=== PATIENT | female | born 1960 | race Caucasian/White ===

== ENCOUNTER → 2020-08-29 03:34 | Outpatient (CLI) | payer OTHER, SELFPAY ==
[2020-08-30 18:18] LABS: SARS-CoV-2 RNA PCR Negative
== END ==
PROVIDERS: PCP Nurse Practitioner Family; Visit Provider Urology
DX: Z01.812 Encounter for preprocedural laboratory examination (principal); Z20.822 Contact with and (suspected) exposure to COVID-19
CPT/HCPCS: C9803; U0003; U0005

== ENCOUNTER 2020-09-01 00:39 | Day surgery (SDC) | payer OTHER, SELFPAY ==
--- NOTE | 2020-08-27 09:55 | PM.IMHP ---
H&P: HPI History of Present Illness Date/Time: 08/27/20 09:55 Chief Complaint: vaginal mesh exposure Narrative: Li Anthony is a 60 year old female small area of vaginal mesh exposure Review of Systems Review of Systems: All systems reviewed & are unremarkable except as noted in HPI and below PMFSH Past Medical History Medical History (Updated 08/27/20 @ 09:57 by King Palm MD) Acute adjustment disorder with anxiety CREST syndrome Depression Dyspareunia Dyspnea on exertion Excessive cerumen in ear canal Fatigue GERD (gastroesophageal reflux disease) Insomnia Memory impairment Normal colonoscopy Osteoarthritis Osteopenia Otalgia Raynauds disease Temporomandibular joint disorders Vaginal dryness Surgical History Surgical History (Updated 05/04/20 @ 11:56 by Ra Ding) H/O breast augmentation H/O prior ablation treatment Family History Family History (Updated 05/04/20 @ 11:59 by Ra Ding) Mother Diabetes mellitus Hypertension Malignant carcinoid tumor of lung Father Dementia Heart disease Kidney disease Social History Social History (Updated 05/04/20 @ 12:00 by Ra Ding) Smoking status: Never smoker Alcohol intake: current Meds Home Medications and Allergies Home Medications Medication Instructions Recorded Confirmed Type acamprosate 333 mg tablet,delayed 333 mg PO BID 05/04/20 History release albuterol sulfate 90 mcg/actuation 2 inh INHALATION Q4H g 05/04/20 History aerosol inhaler alendronate 35 mg tablet 35 mg PO WEEKLY 05/04/20 History amlodipine 5 mg tablet 5 mg PO DAILY 05/04/20 History citalopram 40 mg tablet 20 mg PO DAILY 05/04/20 History famotidine 20 mg tablet 20 mg PO DAILY 05/04/20 History lidocaine (PF) 10 mg/mL (1 %) 1 ml INFILTRATION ONCE 05/04/20 History injection solution omeprazole 40 mg capsule,delayed 40 mg PO DAILY 05/04/20 History release omeprazole 40 mg capsule,delayed 40 mg PO DAILY 05/04/20 History release ospemifene 60 mg tablet 60 mg PO DAILY 05/04/20 History triamcinolone acetonide 10 mg/mL 10 mg SUBCUT WEEKLY 05/04/20 History suspension for injection Allergies Allergy/AdvReac Type Severity Reaction Status Date / Time kiwi Allergy Unknown THROAT Verified 03/10/19 09:41 SWELLING Exam Const: General: healthy appearing; No cooperative HENMT: Head: normal to inspection Eyes: General: appearance normal, both eyes and all related structures Resp: Effort & Inspection: normal respiratory effort and able to speak in complete sentences : Other: small area of mesh exposure Skin: General skin exam: normal color Assessment and Plan Assessment and plan (1) Exposure of vaginal mesh through vaginal wall: Code(s): T83.721A - Exposure of implanted vaginal mesh into vagina, initial encounter Status: Acute Assessment and Plan: excision of exposed mesh
[2020-08-28 15:15] VITALS: BMI 22.0
[2020-09-01] VITALS (8 sets, daily range): BP systolic 118–149; BP diastolic 65–78; PULSE 55–65; RESP 12–18; TEMP 36.1–36.4; O2SAT 98–100
--- NOTE | 2020-09-01 07:18 | WPDHPUPDATE1 ---
History and Physical Update Update Date/Time: 09/01/20 07:18 History and Physical has been reviewed, including an updated exam of the patient. There are NO changes in the patient's condition. Risks, benefits, and alternatives have been discussed and questions answered. Patient agrees to proceed with procedure.
--- NOTE | 2020-09-01 08:40 | ECG_ITS ---
Measurements Intervals [place] Rate: 59 P: 50 IA: 153 QRS: 30 QRSD: 106 T: 36 QT: 451 QTc: 450 Interpretive Statements SINUS BRADYCARDIA INCOMPLETE RIGHT BUNDLE BRANCH BLOCK BORDERLINE ECG Electronically Signed On 09-01-2020 9:24:46 SPECIALIST FIELD ENGINEER by Alek Giraldo D.O.
--- NOTE | 2020-09-01 09:31 | WPDANESEPPF ---
Anes - Initial Pre Proc Eval Procedure: Operation Date: 09/01/20 11:00 Proposed Procedures p Excision Exposed Vaginal Mesh - King Palm MD Date/Time: 09/01/20 09:31 Surgeon: King Palm MD Pre Op Diagnosis: Exposure Of Implanted Vaginal Mesh Patient Data Age: 60 Gender: F Height: 1.65 m Weight: 61 kg Last Vital Signs Temp 36.1 C L 09/01/20 08:58 Pulse 65 09/01/20 08:58 Resp 16 09/01/20 08:58 BP 136/74 09/01/20 08:58 Pulse Ox 100 09/01/20 08:58 Allergies Allergy/AdvReac Type Severity Reaction Status Date / Time kiwi Allergy Severe THROAT Verified 09/01/20 09:17 SWELLING Home Medications Medication Instructions Recorded Confirmed Type amlodipine 5 mg tablet 5 mg PO DAILY 05/04/20 09/01/20 History citalopram 40 mg tablet 20 mg PO DAILY 05/04/20 09/01/20 History omeprazole 40 mg capsule,delayed 40 mg PO DAILY 05/04/20 09/01/20 History release ascorbic acid (vitamin C) [Vitamin 500 mg PO DAILY 09/01/20 09/01/20 History C] cholecalciferol (vitamin D3) 25 mcg PO DAILY 09/01/20 09/01/20 History [Vitamin D3] Patient hx anesthesia problems: none Family hx anesthesia problems: none PMFSH Past Medical History Medical History (Updated 09/01/20 @ 09:31 by Enrique Ch DO) Acute adjustment disorder with anxiety CREST syndrome Depression Dyspareunia Dyspnea on exertion Excessive cerumen in ear canal Fatigue GERD (gastroesophageal reflux disease) Insomnia Memory impairment Normal colonoscopy Osteoarthritis Osteopenia Otalgia Raynauds disease Temporomandibular joint disorders Vaginal dryness Surgical History Surgical History (Updated 05/04/20 @ 11:56 by Ra Ding) H/O breast augmentation H/O prior ablation treatment Family History Family History (Updated 05/04/20 @ 11:59 by Ra Ding) Mother Diabetes mellitus Hypertension Malignant carcinoid tumor of lung Father Dementia Heart disease Kidney disease Social History Social History (Updated 05/04/20 @ 12:00 by Ra Ding) Smoking status: Never smoker Alcohol intake: current Substance use: never Living arrangements: with family Spiritual care concerns: No Anes - Eval Final PreProcedure Day of Procedure 09/01/20 09:31 Patient weight: normal Heart: regular rate and rhythm Lungs: clear to auscultation and normal air movement Airway: Mallampati scale class II Neurological: alert and oriented Last oral intake: >/= 8 hours ASA classification: III Emergent: no Anesthetic plan: proceed Anesthesia type and monitoring: general LMA and standard monitoring Informed Consent: The patient's anesthetic plan and its attendant risks and benefits were discussed with the patient/family/POA. Questions were solicited and answers provided to the satisfaction of the patient/family/POA.
[2020-09-01] MEDS: LACTATED RINGERS 1,000 ML 30 ML IV CONT (09:50)
[2020-09-01] MEDS: ceFAZolin 2 GM/D5W 50 ML 2 GM/50 ML BAG IVPB (10:48)
[2020-09-01] MEDS: KETOROLAC 15 MG/ML VIAL (*BKC) IV PUSH (11:15)
--- NOTE | 2020-09-01 11:42 | PM.PROC ---
Procedure Note - Detailed Date of procedure: 09/01/20 Pre-op diagnosis: Exposure Of Implanted Vaginal Mesh Post-op diagnosis: same Procedure performed: Excision of exposed vaginal mesh Cystoscopy Description of procedure: She understands the risks of bleeding, infection, recurrence of mesh exposure, dyspareunia, recurrent stress incontinence. She agrees to proceed She has correctly identified. Informed consent obtained. She from the operating room. She was given general anesthesia. She was prepped and draped in dorsal lithotomy fashion.. She was given appropriate perioperative antibiotics. I placed a [place] retractor. I placed a [place] catheter. There were some small string like mesh noted in the right sulcus and going towards the right mid urethra. I made an vaginal incision over this area. I grasped the sling material. I was able to trim back in remove small pieces of mesh fibers. I palpated the area. I did not feel any other mesh exposure. I closed the vaginal incision with a running 2 0 Vicryl suture. Cystoscopy revealed normal-appearing bladder and urethra. There is no foreign bodies or surgical artifact. There is no tumors or other abnormalities. She was awakened and transferred to the PACU in stable condition. Anesthesia: GLMA Surgeon: King Palm MD Estimated blood loss (mL): 5 Drains: No Packing: No Pathology: none sent Complications: No immediate complications Condition: stable Disposition: PACU
== END 2020-09-01 13:20 | disposition home or self-care (01) ==
PROVIDERS: PCP Nurse Practitioner Family; Visit Provider Urology
PROC: (CPT 57287; principal; 2020-09-01 11:00)
DX: T83.721A Exposure of implanted vaginal mesh into vagina, initial encounter (principal); N84.2 Polyp of vagina; Y83.8 Other surgical procedures as the cause of abnormal reaction of the patient, or of later complication, without mention of misadventure at the time of the procedure; K21.9 Gastro-esophageal reflux disease without esophagitis; F32.9 Major depressive disorder, single episode, unspecified; F43.22 Adjustment disorder with anxiety
CPT/HCPCS: 57295; 88300; 88305; 93005; A9270; C9803; J0690; J1100; J1885; J2250; J2405; J2704; J3010; J7030; J7120; U0003; U0005

== ENCOUNTER 2021-04-13 07:39 | Outpatient (CLI) | payer OTHER, SELFPAY ==
--- NOTE | ~2021-04-13 | MM_ITS ---
EXAMINATION: MM scrn danie implant BI w gisele HISTORY: Screening mammogram TECHNIQUE: Craniocaudal and mediolateral oblique 3-D tomosynthesis images with implant displacement a nd synthetic 2-D images were generated. Craniocaudal and mediolateral oblique views of the breasts wi thout implant displacement were obtained using full field digital mammography. CAD analysis was submi tted and interpreted. COMPARISON: No prior mammogram is available for comparison at this institution. BREAST PARENCHYMAL COMPOSITION: There are scattered areas of fibroglandular density. FINDINGS: Status post bilateral augmentation mammoplasty. There is no evidence of suspicious mass, ca lcification, or architectural distortion to suggest malignancy in either breast. There has been no crouch spicious interval change. IMPRESSION: 1. No mammographic evidence of malignancy. 2. Recommend routine screening mammography in one year. BI-RADS Category 1: Negative Reviewed, dictated and finalized at location A.
== END 2021-04-13 07:40 | disposition home or self-care (01) ==
LOC: ANHIMG 07:41
PROVIDERS: PCP Nurse Practitioner Family; Visit Provider Nurse Practitioner Family
DX: Z12.31 Encounter for screening mammogram for malignant neoplasm of breast (principal)
CPT/HCPCS: 77063; 77067

== ENCOUNTER 2022-04-02 08:36 | Outpatient (CLI) | payer OTHER, SELFPAY ==
--- NOTE | ~2022-04-02 | MM_ITS ---
EXAMINATION: MM scrn danie implant BI w gisele HISTORY: Screening mammogram TECHNIQUE: Craniocaudal and mediolateral oblique 3-D tomosynthesis images with implant displacement a nd synthetic 2-D images were generated. Craniocaudal and mediolateral oblique views of the breasts wi thout implant displacement were obtained using full field digital mammography. CAD analysis was submi tted and interpreted. COMPARISON: 04/09/2021 bilateral implant screening mammogram BREAST PARENCHYMAL COMPOSITION: There are scattered areas of fibroglandular density. FINDINGS: Status post bilateral augmentation mammoplasty. There is no evidence of suspicious mass, ca lcification, or architectural distortion to suggest malignancy in either breast. There has been no crouch spicious interval change. IMPRESSION: 1. No mammographic evidence of malignancy. 2. Recommend routine screening mammography in one year. BI-RADS Category 1: Negative Reviewed, dictated and finalized at location A.
== END 2022-04-02 08:37 | disposition home or self-care (01) ==
PROVIDERS: PCP Nurse Practitioner Family; Visit Provider Obstetrics & Gynecology
DX: Z12.31 Encounter for screening mammogram for malignant neoplasm of breast (principal)
CPT/HCPCS: 77063; 77067

== ENCOUNTER → 2022-05-20 10:44 | Outpatient (CLI) | payer OTHER, SELFPAY ==
--- NOTE | ~2022-05-20 | XR_ITS ---
EXAMINATION: XR chest 2V DATE: 05/20/2022 10:59 INDICATION: 6 months of cough TECHNIQUE: PA and lateral views of the chest were obtained. COMPARISON: None FINDINGS: The lungs are clear with no focal airspace opacities, pulmonary edema, pleural effusion or pneumothor ax. The cardiomediastinal silhouette is normal. Bilateral breast implants with some capsular calcific ation on the left. Visualized bones and soft tissues are unremarkable. Mild S-shaped thoracolumbar sc oliosis. With moderate spondylosis. Midthoracic compression fracture. IMPRESSION: 1. No acute cardiopulmonary disease. Reviewed, dictated and finalized at location B.
== END ==
PROVIDERS: PCP Nurse Practitioner Family; Visit Provider Nurse Practitioner Family
DX: R05.9 Cough, unspecified (principal)
CPT/HCPCS: 71046

== ENCOUNTER → 2022-12-03 12:55 | Outpatient (CLI) | payer OTHER, SELFPAY ==
--- NOTE | ~2022-12-03 | XR_ITS ---
XR hip RT 2V w AP pelvis 12/03/2022 13:23 Indication: Right hip and SI joint pain Procedure: AP pelvis and 2 views right hip Comparison: No prior studies for comparison. Findings: Pelvic rings are intact. Sacral foramen are symmetric. No fracture, subluxation or dislocat ion. There is lower lumbar spondylosis. No significant soft tissue abnormality. Impression: 1: No acute bone or joint abnormality. Reviewed, dictated and finalized at location L. Impression: 1: No acute bone or joint abnormality.
== END ==
PROVIDERS: PCP Chiropractor; Visit Provider Chiropractor
DX: M25.551 Pain in right hip (principal)
CPT/HCPCS: 73502

== ENCOUNTER 2023-08-04 07:56 | Outpatient (CLI) | payer MEDICARE, SELFPAY ==
--- NOTE | ~2023-08-04 | MM_ITS ---
EXAMINATION: MM scrn danie implant BI w gisele HISTORY: Screening mammogram TECHNIQUE: Craniocaudal and mediolateral oblique 3-D tomosynthesis images with implant displacement a nd synthetic 2-D images were generated. Craniocaudal and mediolateral oblique views of the breasts wi thout implant displacement were obtained using full field digital mammography. CAD analysis was submi tted and interpreted. COMPARISON: Comparison to multiple prior studies sequentially, with oldest reviewed study dated 04/13. BREAST PARENCHYMAL COMPOSITION: Breast composed of scattered areas of fibroglandular density FINDINGS: The right breast is stable without evidence for malignancy. There are bilateral subglandula r silicone implants. There are nodular asymmetries in the upper central aspect of the left breast. IMPRESSION: 1. New nodular asymmetries upper central left breast. 2. Additional spot compression and mediolateral views with possible follow-up breast ultrasound recom mended. BI-RADS Category 0: Incomplete: Needs additional imaging evaluation. Reviewed, dictated and finalized at location A. CLOPEDIA RESEARCH WORKER IMPRESSION: 1. New nodular asymmetries upper central left breast. 2. Additional spot compression and mediolateral views with possible follow-up b reast ultrasound recommended. BI-RADS Category 0: Incomplete: Needs additional imaging evaluation.
== END 2023-08-04 07:57 | disposition home or self-care (01) ==
LOC: ANHIMG 08:00
PROVIDERS: PCP Family Medicine; Visit Provider Obstetrics & Gynecology
DX: Z12.31 Encounter for screening mammogram for malignant neoplasm of breast (principal); R92.8 Other abnormal and inconclusive findings on diagnostic imaging of breast
CPT/HCPCS: 77063; 77067

== ENCOUNTER 2023-09-01 10:34 | Outpatient (CLI) | payer MEDICARE, SELFPAY ==
--- NOTE | ~2023-09-01 | MMUS_ITS ---
EXAMINATION: MM diag danie implant LT w gisele, US breast LT limited HISTORY: Left breast asymmetry on screening mammogram TECHNIQUE: Craniocaudal, mediolateral, and mediolateral oblique 3-D tomosynthesis images with implant displacement of the left breast were performed and synthetic 2-D images were generated. Mediolatera l views of the left breast without implant displacement were obtained using full field digital mammog rosy. CAD analysis was submitted and interpreted. COMPARISON: 08/04/2023, 04/02/2022, 04/13/2021 FINDINGS: MAMMOGRAPHIC FINDINGS: There is a return to baseline fibroglandular appearance with spot compression of the left breast in the area questioned on screening mammogram. ULTRASOUND FINDINGS: No suspicious cystic or solid sonographically detected mass is identified. IMPRESSION: 1. No mammographic or sonographic evidence of malignancy. 2. Recommend routine screening mammography in one year. BI-RADS Category 1: Negative Reviewed, dictated and finalized at location A. MONIUM NITRATE CRYSTALLIZER IMPRESSION: 1. No mammographic or sonographic evidence of malignancy. 2. Recommend routine screening mammography in one year. BI-RADS Category 1: Negative
== END 2023-09-01 10:35 | disposition home or self-care (01) ==
LOC: ANHIMG 10:37
PROVIDERS: PCP Family Medicine; Visit Provider Obstetrics & Gynecology
DX: R92.8 Other abnormal and inconclusive findings on diagnostic imaging of breast (principal)
CPT/HCPCS: 76642; 77061; 77065; G0279

== ENCOUNTER 2023-10-01 17:35 | Emergency (ER) | payer MEDICARE, SELFPAY ==
--- NOTE | ~2023-10-01 | XR_ITS ---
XR wrist RT min 3V 10/01/2023 18:34 Indication: Right wrist pain after fall Procedure: 4 views right wrist Comparison: No prior studies for comparison. Findings: There is a possible scaphoid waist fracture. There is polyarticular osteoarthritis. Normal mineralization. Old ulnar styloid avulsion fracture. Impression: 1: Possible scaphoid waist fracture. 2: Polyarticular osteoarthritis. Reviewed, dictated and finalized at location A. Impression: 1: Possible scaphoid waist fracture. 2: Polyarticular osteoarthritis.
[2023-10-01 17:51] VITALS: BP 138/75; PULSE 69; RESP 18; TEMP 37.2; O2SAT 100
--- NOTE | 2023-10-01 18:31 | ED.GENADULT ---
HPI - General Adult General Chief complaint: Fall Stated complaint: fall Time Seen by Provider: 10/01/23 18:03 Source: patient Mode of arrival: ambulatory Limitations: no limitations History of Present Illness HPI narrative: This is a 63-year-old female who presents to the ED with chief complaint of a fall while playing kickball today. Patient states that she was bumped and stumbled to the ground. Reports that she braced herself with the right wrist and did slowly hit her face on the ground. Denies LOC or any further sites of pain or injury. Denies numbness, weakness. Related Data Home Medications Medication Instructions Recorded Confirmed omeprazole 40 mg capsule,delayed 40 mg PO DAILY 05/04/20 10/01/23 release cholecalciferol (vitamin D3) 25 25 mcg PO DAILY 09/01/20 10/01/23 mcg (1,000 unit) tablet (Vitamin D3) alendronate 35 mg tablet 35 mg PO WEEKLY 08/26/23 10/01/23 multivitamin (Daily Multi-Vitamin 1 tablet PO DAILY 08/26/23 10/01/23 tablet) vit cap PO DAILY 08/26/23 10/01/23 C,E,zinc,Gs-gvtnx-7-lutein-zeaxanthin 250 mg-2.5 mg-0.5 mg capsule Allergies Allergy/AdvReac Type Severity Reaction Status Date / Time kiwi Allergy Severe THROAT Verified 10/01/23 18:10 SWELLING Review of Systems Review of Systems: All systems as dictated in HPI PMFSH Past Medical History Medical History (Updated 10/02/23 @ 00:00 by Background Daemon) Acute adjustment disorder with anxiety Change in bowel habits CREST syndrome Depression Dyspareunia Dyspnea on exertion Excessive cerumen in ear canal Fatigue GERD (gastroesophageal reflux disease) Incontinence of feces Insomnia 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 Memory impairment Normal colonoscopy Osteoarthritis Osteopenia Otalgia Raynauds disease Temporomandibular joint disorders Vaginal dryness Surgical History Surgical History H/O breast augmentation H/O prior ablation treatment Family History Family History Mother Diabetes mellitus Hypertension Malignant carcinoid tumor of lung Father Dementia Heart disease Kidney disease Alcoholism Lung cancer Depression Anxiety Grandparent Alcoholism Diabetes mellitus Social History Social History Smoking status: Never smoker Alcohol intake: never Substance use: never Do You Feel Safe in your Home?: Yes Lack of Transportation: No Lack of Food: Never True Current Housing: I Have Housing Concerned About Future Housing: No Difficulty Paying Gas/Electric Bills: No Difficulty Paying for Meds: No Currently Unemployed: No Education: High School Diploma/GED Living arrangements: with family Spiritual care concerns: No Exam Narrative: GENERAL: Well-appearing, well-nourished, and in no acute distress. HEAD: Normocephalic, atraumatic. EYES: PERRLA and EOMI. ENT: Nares clear, no rhinorrhea or epistaxis. Mucous membranes moist. Oropharynx without tonsillar hypertrophy exudate or other lesions. NECK: Supple. No adenopathy or masses. CHEST: No respiratory distress. Clear to auscultation. No wheezes rales or rhonchi HEART: Regular rate and rhythm. No murmur heard. Normal peripheral pulses. ABDOMEN: Soft, nontender, nondistended, normal active bowel sounds. MSK: Normal range of motion. No edema. Full range of motion of extremities. No anatomical snuffbox tenderness to the right wrist. No swelling or bruising to the right wrist. Mild tenderness dorsally to the right hand and wrist. Neurovascular intact distally. SKIN: Warm, dry, no rash. Superficial abrasion noted to the right eyebrow. No bleeding NEURO: Alert and oriented x3. No focal deficits. PSYCH: Normal mood and affect. Course Vital Signs Vital signs: Vital Signs Temperature 99 F 10/01/23 17:51 Pulse Rate 69
[2023-10-01 19:25] VITALS: BP 132/74; PULSE 67; RESP 20; O2SAT 100
== END 2023-10-01 19:27 | disposition home or self-care (01) ==
PROVIDERS: Emergency Provider Physician Assistant; PCP Family Medicine
DX: S69.91XA Unspecified injury of right wrist, hand and finger(s), initial encounter (principal); F41.9 Anxiety disorder, unspecified; F32.A Depression, unspecified; K21.9 Gastro-esophageal reflux disease without esophagitis; M19.90 Unspecified osteoarthritis, unspecified site; W03.XXXA Other fall on same level due to collision with another person, initial encounter
CPT/HCPCS: 29125; 73110; 99283

== ENCOUNTER 2024-08-12 07:55 | Outpatient (CLI) | payer MEDICARE, SELFPAY ==
[2024-08-12 18:26] LABS: Hematocrit 37.7 % (37.0-47.0); Hemoglobin 12.1 g/dL (12.0-15.0); Mean Corpuscular HGB Conc 32.1 g/dl (32-36); Mean Corpuscular Hemoglobin 29.6 pg (26-34); Mean Corpuscular Volume 92.2 fl (80-100); Mean Platelet Volume 11.5 fl (7.4-10.4); Platelet Count Result 244 k/mm3 (150-375); Red Blood Count 4.09 M/mm3 (4.2-5.4); Red Cell Distribution Width 13.1 % (11.5-14.5); White Blood Count 4.4 K/mm3 (4.5-10.0)
[2024-08-12 19:11] LABS: Alanine Aminotransferase 17 U/L (6-35); Albumin Level 3.6 g/dL (3.5-5.1); Alkaline Phosphatase 55 U/L (38-126); Anion Gap 5 mmol/L (4-12); Aspartate Amino Transferase 31 U/L (14-36); Bilirubin,Total 0.4 mg/dL (0.2-1.3); Blood Urea Nitrogen 11 mg/dL (7-17); Calcium 8.5 mg/dL (8.4-10.2); Carbon Dioxide 28 mmol/L (22-30); Chloride 105 mmol/L (98-107); Cholesterol 150 mg/dL (0-200); Estimated Glomerular Filt Rate > 60; Glucose 91 mg/dL (65-110); HDL Direct 57 mg/dL; Potassium 4.6 mmol/L (3.4-5.0); Sodium 138 mmol/L (137-145); Triglycerides 38 mg/dL (<150)
[2024-08-12 19:22] LABS: LDL Cholesterol Direct 71 mg/dL
[2024-08-12 19:41] LABS: Thyroid Stimulating Hormone 0.658 uIU/mL (0.465-4.680)
[2024-08-12 19:50] LABS: Hemoglobin A1C 5.6 % (<5.7)
== END 2024-08-12 07:56 | disposition home or self-care (01) ==
LOC: ANHGOSHLAB 07:56
PROVIDERS: PCP Family Medicine; Visit Provider Family Medicine
DX: E55.9 Vitamin D deficiency, unspecified (principal); F41.9 Anxiety disorder, unspecified; R73.03 Prediabetes; E78.5 Hyperlipidemia, unspecified; Z79.899 Other long term (current) drug therapy
CPT/HCPCS: 36415; 80053; 80061; 82652; 83036; 84443; 85027

== ENCOUNTER 2024-08-25 10:39 | Outpatient (CLI) | payer MEDICARE, SELFPAY ==
--- NOTE | ~2024-08-25 | MR_ITS ---
MR breast BI wo/w con 08/25/2024 14:40 STATION BAGGAGE AGENT INDICATION: Breast implant leak. TECHNIQUE: MRI of the breasts perform using standard protocol pre-and post IV contrast with the follo wing sequences: Axial T2 STIR, axial T1, axial vibrant T1 with fat suppression precontrast and multip hasic postcontrast. COMPARISON: Mammogram dated 08/05/2024 FINDINGS: There is intracapsular rupture of left breast implant. No definite extracapsular rupture is identified. Rupture is characterized by subcapsular line sign and linguini sign. No evidence for rig ht breast implant rupture. Right breast: No lymphadenopathy. No mass is identified on precontrast images. There are no abnormali ties on the precontrast sequences. There is mild-moderate background parenchymal enhancement. No enh ancing lesions following contrast administration. No areas of enhancement meeting threshold criteria on CAD analysis. No evidence of signal abnormalities in the axillary or internal mammary node distr ibutions. LEFT BREAST: No signal abnormalities on precontrast sequences. There is minimal background parenchym al enhancement. No enhancing lesions following contrast administration. No areas of enhancement me eting threshold criteria on CAD analysis. No evidence of signal abnormalities in the axillary or in ternal mammary node distributions. IMPRESSION: 1: Right breast: Negative. No evidence of malignancy. BI-RADS category 1. Recommend annual mammo graphy follow-up. 2: Left breast: Intracapsular rupture of left breast implant. No evidence of malignancy. BI-RADS ca tegory 2. Recommend annual mammography follow-up. Follow-up MRI may be useful for supplementing mammographic evaluation as clinically indicated. Reviewed, dictated and finalized at location B. ION BAGGAGE AGENT IMPRESSION: 1: Right breast: Negative. No evidence of malignancy. BI-RADS category 1. Recommend annual mammography follow-up. 2: Left breast: Intracapsular rupture of left breast implant. No evidence of m alignancy. BI-RADS category 2. Recommend annual mammography follow-up. Follow-up MRI may be useful for supplementing mammographic evaluation as clinic ally indicated.
--- OUTSIDE RECORDS SUMMARY | 2024-08-25 12:13 | XMS_ITS | CONTINUITY OF CARE DOCUMENT ---
Author Name mendoza donaldson Address Unknown Organization [facility] Address [address] [place] [address] Phone [phone] Care Team Providers Care Emergency Service Worker Name Role Phone Ursula Alonzo MD Unavailable Frances RESENDIZP-BCKatina Unavailable Frances PAREKH-Katina ONTIVEROS Unavailable INSURANCE PROVIDERS Payer name Policy type / Coverage type [place] red green party ID [facility] Other [id number]
--- OUTSIDE RECORDS SUMMARY | 2024-08-25 12:13 | XMS_ITS | Continuity of Care Document ---
Author Organization [facility] Address [address] [place] [address] Phone Care Team Providers Care Funeral Director'S Assistant Name Role Phone Sun OD, Raciel Unavailable Unavailable Advance Directives Directive Yes / No Effective Date File Name No Information Encounters Encounter Description Practice Location Reason(s) For Visit Diagnoses Date Provider Providers Copied on Encounter [facility], [address], [place], [place], [id number], [place] tel:[phone] [facility] No Information May-2 6-200 5 Sun OD Raciel. [address] , [address], [place], [address], [place]. tel:[phone] Family History Family Member Type Diagnosis Age At Onset No Information Payers Payer name Insurance type Covered constitution party ID Authoriza tirolf(s) [facility] Commercial CI [id number] Social History Type Description Quantity Date Captured Comments Sex Female Smoking Status No Information Chief Complaint And Reason For Visit No Information Reason For Referral Reason For Referral No Information History Of Present Illness Encounter Date Complaint History Of Prese nt Illness No Information Functional Status Date Functional Assessmen t No Information Instructions Date Instruction Additional Infor mation No Information Assessments Type Assessment Date No Information Patient Care Teams Name Effective Dates (start - stop) Status Members No Information
== END 2024-08-25 10:40 | disposition home or self-care (01) ==
PROVIDERS: PCP Family Medicine; Visit Provider Family Medicine
DX: R92.8 Other abnormal and inconclusive findings on diagnostic imaging of breast (principal); T85.43XA Leakage of breast prosthesis and implant, initial encounter
CPT/HCPCS: 77049; A9577; C8908

== ENCOUNTER 2024-10-06 08:43 | Day surgery (SDC) | payer OTHER, SELFPAY ==
[2024-09-15 09:34] VITALS: BMI 20.9
--- NOTE | 2024-10-05 19:58 | P.PNAN_ITS ---
Anes - Initial Pre Proc Eval Procedure: Operation Date: 10/06/24 10:30 Proposed Procedures p Bilateral Breast Implant Exchange - Rajat Knutson MD Date/Time: 10/05/24 19:58 Surgeon: Rajat Knutson MD Pre Op Diagnosis: Bilateral Breast Implant Rupture Patient Data Age: 64 Gender: F Height: 1.65 m Weight: 57 kg Allergies Allergy/AdvReac Type Severity Reaction Status Date / Time kiwi Allergy Severe THROAT Verified 10/06/24 09:13 SWELLING Home Medications ?Medication ?Instructions ?Recorded ?Confirmed ?Type alendronate 35 mg tablet 35 mg PO WEEKLY 08/26/23 10/06/24 History progesterone micronized 200 mg 200 mg PO QPM 07/27/24 10/06/24 History capsule vit A 225 mcg-D3 2.5 mcg-E 16.75 1 cap PO DAILY 07/27/24 10/06/24 History ni-qvrlaw-oqzp-selenom-herb capsule (MedCaps T3) citalopram 40 mg tablet See Rx Instructions .Route 08/26/24 10/06/24 Rx .COMPLEX #90 tabs omeprazole 40 mg capsule,delayed 40 mg PO DAILY #90 caps 09/06/24 10/06/24 Rx release simvastatin 10 mg tablet See Rx Instructions .Route 10/06/24 Rx .COMPLEX #90 tabs Patient hx anesthesia problems: none Family hx anesthesia problems: none Results Review: All pre-operative results and documents have been reviewed as part of the pre- operative evaluation. PMFSH Past Medical History Medical History Change in bowel habits Incontinence of feces group home use of drug Normal colonoscopy Dyspnea on exertion Memory impairment Fatigue Osteopenia Osteoarthritis CREST syndrome Vaginal dryness Dyspareunia GERD (gastroesophageal reflux disease) Temporomandibular joint disorders Raynauds disease Otalgia Excessive cerumen in ear canal Insomnia Depression Acute adjustment disorder with anxiety Surgical History Surgical History H/O breast augmentation H/O prior ablation treatment Family History Family History Mother Diabetes mellitus Hypertension Malignant carcinoid tumor of lung Father Dementia Heart disease Kidney disease Alcoholism Lung cancer Depression Anxiety Grandparent Alcoholism Diabetes mellitus Social History Social History Smoking status: Never smoker Second hand tobacco smoke exposure: Yes Alcohol intake: former Alcohol use details: quit 2021 Substance use: never Substance use type: does not use Do You Feel Safe in your Home?: Yes Lack of Transportation: No Lack of Food: Never True Current Housing: I Have Housing Concerned About Future Housing: No Difficulty Paying Gas/Electric Bills: No Difficulty Paying for Meds: No Currently Unemployed: No Education: High School Diploma/GED Living arrangements: with family Spiritual care concerns: No Anes - Eval Final PreProcedure Day of Procedure 10/05/24 19:58 Patient weight: normal Heart: regular rate and rhythm Lungs: clear to auscultation Airway: Mallampati scale class II Neurological: alert and oriented Last oral intake: >/= 8 hours ASA classification: III Emergent: no Anesthetic plan: proceed Anesthesia type and monitoring: general LMA and standard monitoring Results Review: All pre-operative results and documents have been reviewed as part of the pre- operative evaluation. Informed Consent: The patient's anesthetic plan and its attendant risks and benefits were discussed with the patient/family/POA. Questions were solicited and answers provided to the satisfaction of the patient/family/POA.
[2024-10-06] VITALS (9 sets, daily range): BP systolic 107–148; BP diastolic 68–92; PULSE 66–80; RESP 12–16; TEMP 36.2–36.9; O2SAT 92–100
--- OUTSIDE RECORDS SUMMARY | 2024-10-06 09:18 | XMS_ITS | Data Portability ---
Author Organization [place] - [facility] [employer], Main Office Address [address] [place] [address] Care Team Providers Care Feed Inspection Supervisor Name Role Phone KAMLESH RODRIGUEZ Primary Care Provider [phone] KAMLESH RODRIGUEZ Referring Provider [phone] Assessment No assessment recorded. Plan of Treatment Reminders Order Date Submit Date Provider Last Modified By Organization Details Last Modified Time Details Appointments None recorded. Lab None recorded. Referral None recorded. Procedures None recorded. Surgeries None recorded. Imaging None recorded. Medication Orders doxycycline hyclate 100 mg capsule 2022 023 [facility] #[id number], [address], [place], [id number], 3 17:03:53 Medrol (Cristobal) 4 mg tablets in a dose pack 2022 023 [facility] #93187, [address], [place], [id number], 3 17:03:53 albuterol sulfate HFA 90 mcg/actuati on aerosol inhaler 2022 023 [facility] #99706, [address], [place], [id number], 3 17:03:53 Symbicort 160 mcg-4.5 mcg/actuati on HFA aerosol inhaler 2022 023 [facility] #55653, [address] [place], [place], [id number], 3 17:03:53 Patient TargetsNo targets recorded. Patient Instructions Encounter Date Encounter Id Patient Instructions Last Modified By Organization Details Last Modified Time 11/05/2022 [id number] [email or web address]. [email or web address] Not available 11/05 17:13:14 Reason for Referral None Reported. Results Created Date Observation Date Name Description Value Unit Range Abnormal Flag Note LastModifiedBy Organization Detail LastModifiedTime 04/02/20 22 04/02/2022 MAMMO , scree tere, bilat eral No observ ation record ed. [id number] [facility] [address], [place], [address], 09/18/2022 06:48:39 05/20/20 22 05/20/2022 XR, chest , 2 view No observ ation record ed. [id number] [facility] [address], [place], [address], 09/18/2022 06:48:39 Result Notes None recorded. Problems Name Problem SNOMED Code Status Onset Date Resolution Date Notes Provider Name and Address Organization Details Recorded Time Impacted cerumen of bilateral ears 5029990329830 108 Active 2021 Not Available [facility] 3 18:00:08 Dysfunctio n of right eustachian tube 2158574907277 101 Active 2021 Not Available [facility] 3 18:00:08 Trigger finger of right hand 2697259242496 9101 Active 2019 Not Available [facility] 3 18:00:08 Excessive cerumen in ear canal 074786010 Active Not Available [facility] 3 18:00:08 Excessive cerumen in ear canal 546674414 Active 2017 Not Available [facility] 3 18:00:08 Otalgia 67722315 Active Not Available [facility] 3 18:00:08 Blood chemistry outside reference range 978907545 Active Not Available [facility] 3 18:00:08 Insomnia 545172861 Active 2019 Not Available [facility] 3 18:00:08 Raynaud's disease 256250207 Active Not Available [facility] 3 18:00:08 Mixed anxiety and depressive disorder 329567720 Active 2020 Not Available [facility] 3 18:00:08 Gastroesop hageal reflux disease 503353708 Active Not Available [facility] 3 18:00:08 Screening mammograph y Active 2020 Not Available [facility] 3 18:00:08 Vaginal dryness on intercours e 500761182 Active Not Available [facility] 3 18:00:08 Headache 51764255 Active 2021 Not Available [facility] 3 18:00:08 Thyroid function tests abnormal 375913053 Active Not Available [facility] 3 18:00:08 Osteopenia 725959221 Active 2019 Not Available [facility] 3 18:00:08 CREST syndrome 12041829 Active Not Available [facility] 3 18:00:08 Bronchitis 48398398 Active 2021 Not Available [facility] 3 18:00:08 Depressive disorder 97266578 Active Not Available [facility] 3 18:00:08 Osteoarthr osis of the carpometac arpal joint of the thumb 37489925 Active 2019 Not Available [facility] 3 18:00:08 Memory impairment 953170773 Active Not Available [facility] 3 18:00:08 Temporoman dibular joint disorder 48949825 Active Not Available [facility] 3 18:00:08 Anxiety 58927748 Active Not Available [facility] 3 18:00:08 Cough 36218547 Active Not Available [facility] 3 18:00:08 Compressio n fracture of thoracic vertebra 6587917852297 Active 2021 Not Available [facility] 3 18:00:08 Hyperlipid emia 14855352 Active 2021 Not Available [facility] 3 18:00:08 Dyspnea on exertion 76494767 Active 2019 Not Available [facility] 3 18:00:08 Osteoporos is 05677210 Active 2021 Not Available [facility] 3 18:00:08 Dyspareuni a 36005063 Active 2016 Not Available [facility] 3 18:00:08 Fatigue 95359633 Active Not Available [facility] 3 18:00:08 Acute right otitis media 457935645 Active 2022 Not Available [facility] 3 18:00:08 Notes:Some problems listed i n Documents: #[id number], #[id number], #[id number] could not be added to this patient's chart. Please review these documents and add these problems to the patient's chart manually as needed. Problem Notes None recorded. Procedures Surgical History Date Name Laterality Status Provider Name and Address Organization Details Recorded Time 04/02/20 Most Recent Mammogram completed Kamlesh Leija RN [place] [facility] [employer] [facility] 11/05/2022 16:53:16 colonoscopy completed Not Available [facility] 09/18/2022 06:40:44 Imaging Results Imaging Date Name Status LastModified by Organiz ation Details LastModified Time 04/02/2022 MAMMO, screening, bilateral completed [id number] [facility] [address], [place], [address], 09/18/2022 06:48:39 05/20/2022 XR, chest, 2 view completed [id number] [facility] [address], [place], [address], 09/18/2022 06:48:39 Procedure Notes None recorded. Medical Equipment None Reported. Allergies No known drug allergies Medications Name Sig Start Date Stop Date Status Note LastModified by Organization Details LastModified Time nifedipin e ER 30 mg tablet,ex tended release 24 hr TAKE 1 TABLET BY MOUTH EVERY DAY active Not Available Not Available No t Available cyclobenz aprine 10 mg tablet TK 1 T PO BEFORE INTERCOU RSE 06/04 completed Not Available Not Available Not Available prednison e 10 mg tablet Take 1 tablet every day by oral route as directed for 7 days. active Take 40mg on day 1,2; Than 20mg on day 3,4; Than 10mg on day 5,6,7. Take with food, do not take on empty stomach. Not Available Not Available Not Available Estring 2 mg (7.5 mcg/24 hour) vaginal ring INSERT 1 RING VAGINALL Y EVERY 3 MONTHS 01/19 completed Not Available Not Available Not Available doxycycli ne hyclate 100 mg capsule TAKE 1 CAPSULE BY MOUTH TWICE DAILY FOR 10 DAYS active Not Available Not Available No t Available citalopra m 40 mg tablet TAKE 1 TABLET BY MOUTH DAILY active Not Available Not Available No t Available azithromy daniel 250 mg tablet TAKE 2 TABLETS (500 MG) BY ORAL ROUTE ONCE DAILY FOR 1 DAY THEN 1 TABLET (250 MG) BY ORAL ROUTE ONCE DAILY FOR 4 DAYS active Not Available Not Available No t Available ofloxacin 0.3 % eye drops 11/05 completed Not Available Not Available Not Available fluconazo le 150 mg tablet 1 tab po daily. 05/03 completed Not Available Not Available Not Available benzonata te 200 mg capsule Take 1 capsule every 8 hours by oral route as needed for 5 days. active Not Available Not Available No t Available Patanol 0.1 % eye drops active Not Available Not Available Not Available Debrox 6.5 % ear drops INSTILL 4 DROPS INTO AFFECTED EAR(S) BY OTIC ROUTE 2 TIMES PER DAY 11/05 completed Start using 3-4 days before your next visit. Not Available Not Available Not Available amlodipin e 5 mg tablet TAKE 1 TABLET BY MOUTH DAILY active Not Available Not Available No t Available ciproflox acin 500 mg tablet TK 1 T PO Q 12 H FOR 5 DAYS 06/04 completed Not Available Not Available Not Available omeprazol e 40 mg capsule,d elayed release Take 1 capsule every day by oral route for 90 days. active Not Available Not Available No t Available tramadol 50 mg tablet TAKE 1 TABLET BY MOUTH EVERY 6 HOURS NEEDED FOR PAIN 01/19 completed Not Available Not Available Not Available alendrona te 35 mg tablet TAKE 1 TABLET BY MOUTH WEEKLY active Not Available Not Available No t Available Tessalon Perles 100 mg capsule Take 1 capsule every 4-6 hours by oral route as directed for 15 days. active Not Available Not Available No t Available citalopra m 20 mg tablet TAKE 1 TABLET DAILY active Not Available Not Available No t Available famotidin e 20 mg tablet Take 1 tablet twice a day by oral route. 01/19 completed Not Available Not Available Not Available Kenalog 10 mg/mL suspensio n for injection In office injectio n administ ered by the provider 06/20 completed [facility]: [phone] Not Available Not Available Not Available dexametha sone 4 mg tablet 11/05 completed Not Available Not Available Not Available hydroxych loroquine 200 mg tablet TAKE 2 TABLETS BY MOUTH 1 TIME WEEKLY 11/05 completed Not Available Not Available Not Available methylpre dnisolone 4 mg tablets in a dose pack FOLLOW PACKAGE DIRECTIO NS active Not Available Not Available No t Available albuterol sulfate HFA 90 mcg/actua tion aerosol inhaler INHALE 2 PUFFS BY MOUTH EVERY 4 HOURS NEEDED FOR WHEEZING OR SHORTNES S OF BREATH active Not Available Not Available No t Available nifedipin e ER 60 mg tablet,ex tended release active Not Available Not Available Not Available fluticaso ne propionat e 50 mcg/actua tion nasal spray,marie pension active Not Available Not Available Not Available disulfira m 500 mg tablet TK 1 T PO QD FOR 14 DAYS. ALCOHOL FREE FOR MORE THAN 12 H 08/25 completed Patient taking 1/2-1 tab. PRN Not Available Not Available Not Available neomycin- polymyxin -hydrocor t 3.5 mg-10,000 unit/mL-1 % ear drops,marie p SHAKE LIQUID AND INSTILL 4 DROPS TO AFFECTED EAR THREE TIMES DAILY FOR 5 DAYS 11/05 completed Not Available Not Available Not Available Estrace 0.01% (0.1 mg/gram) vaginal cream I / APPLICAT OR PER VAGINA QOD 09/27 completed Not Available Not Available Not Available Premarin 0.625 mg/gram vaginal cream INSERT 0.5 GRAMS IN THE VAGINA EVERY OTHER DAY 01/19 completed Not Available Not Available Not Available acamprosa te 333 mg tablet,de layed release Take 1 tablet 3 times a day by oral route. active Not Available Not Available No t Available zinc 2020 active 100 MG (VIT C 1000MG/ D3 5000 IU Not Available Not Available Not Available lidocaine (PF) 10 mg/mL (1 %) injection solution In office injectio n administ ered by the provider 06/20 completed [facility]: [id number] 01-04 Not Available Not Available Not Available Symbicort 160 mcg-4.5 mcg/actua tion HFA aerosol inhaler INHALE 2 PUFFS BY MOUTH TWICE DAILY FOR 10 DAYS active Not Available Not Available No t Available omeprazol e 20 mg tablet,de layed release active Not Available Not Available Not Available Vagifem 10 mcg vaginal tablet Insert 1 tablet every day by vaginal route as directed for 14 days. active Not Available Not Available No t Available B12 2020 active Not Available Not Available Not Avai lable Suprep Bowel Prep Kit 17.5 gram-3.13 gram-1.6 gram oral solution 08/25 completed Not Available Not Available Not Available Osphena 60 mg tablet TK 1 T PO QD 06/20 completed Not Available Not Available Not Available Intrarosa 6.5 mg vaginal insert INSERT 1 INSERT INTO VAGINA AT BEDTIME 11/05 completed Not Available Not Available Not Available Vitals Date Recorded Body mass index (BMI) Body height Heart rate Body temperature Body weight Systolic blood pressure Diastolic blood pressure Provider Name and Address Organization Details Last Updated DateTime 2 22.1 kg/m2 162.56 cm 76 /min 97 [degF] 95679.4 2 g 112 mm[Hg] 76 mm[Hg] Not Available [facility] 3 06:43:31 Date Recorded Body mass index (BMI) Body height Oxygen saturation Oxygen saturation in Arterial blood by Pulse oximetry Heart rate Respiratory rate Body weight Systolic blood pressure Diastolic blood pressure Provider Name and Address Organization Details Last Updated DateTime 2 22.2 kg/m2 162.56 cm 98 % 98 % 76 /min 16 /min 75744.2 2 g 120 mm[Hg] 72 mm[Hg] Not Available [facility] 3 06:43:31 Date Recorded Body mass index (BMI) Body height Body temperature Body weight Systolic blood pressure Diastolic blood pressure Provider Name and Address Organization Details Last Updated DateTime 2 29.4 kg/m2 162.56 cm 98 [degF] 49463.7 5 g 128 mm[Hg] 76 mm[Hg] Not Available [facility] 3 06:43:31 Date Recorded Body mass index (BMI) Body height Body temperature Body weight Systolic blood pressure Diastolic blood pressure Provider Name and Address Organization Details Last Updated DateTime 2 20.8 kg/m2 162.56 cm 98.2 [degF] 10902.6 8 g 132 mm[Hg] 84 mm[Hg] Not Available [facility] 3 06:43:31 Date Recorded Body height Body mass index (BMI) Body weight Body temperature Heart rate Respiratory rate Oxygen saturation Oxygen saturation in Arterial blood by Pulse oximetry Pain severity - 0-10 verbal numeric rating [Score] - Reported Systolic blood pressure Diastolic blood pressure Provider Name and Address Organization Details Last Updated DateTime 3 162.56 cm 21 kg/m2 65529.9 7 g 101.9 [degF] 94 /min 20 /min 94 % 94 % 3 120 mm[Hg] 78 mm[Hg] Kamlesh Leija RN [place] - [place] [facility] 3 16:51:44 Social History Question Answer Notes LastModified by Organizat ion Details LastModified Time Tobacco Smoking Status Never Smoker Not Available [facility] 09/18/2022 06:40:39 Do You Have An Advance Directive? Yes MIGRATION.49561 [id number] Information not available 09/18/2022 What Is Your Level Of Alcohol Consumption? Moderate MIGRATION.20054 89995 Information not available 09/18/2022 Do You Wear A Helmet When Biking? Yes MIGRATION. 03102 Information not available 09/18/2022 Is Blood Transfusion Acceptable In An Emergency? Yes [email or web address] Information not available 11/05/2022 What Is Your Level Of Caffeine Consumption? Moderate MIGRATION.55735 43863 Information not available 09/18/2022 How Much Tobacco Do You Chew? None MIGRATION. 00667 Information not available 09/18/2022 In The 14 Days Before Symptom Onset, Have You Had Close Contact With A Laboratory-pablo bettieed COVID-19 While That Case Was Ill? No MIGRATION. 01877 Information not available 09/18/2022 In The 14 Days Before Symptom Onset, Have You Had Close Contact With A Person Who Is Under Investigation For COVID-19 While That Person Was Ill? No MIGRATION.40876 48182 Information not available 09/18/2022 What Type Of Diet Are You Following? REGULAR MIGRATION.38422 62720 Information not available 09/18/2022 Which Illicit Or Recreational Drugs Have You Used? None MIGRATION.12244 66530 Information not available 09/18/2022 Do You Or Have You Ever Used E-cigarettes Or Vape? Never Used Electronic Cigarettes MIGRATION.64529 17456 Information not available 09/18/2022 What Is The Highest Grade Or Level Of School You Have Completed Or The Highest Degree You Have Received? 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 No MIGRATION.79309 74327 Information not available 09/18/2022 What Is The Fluoride Status Of Your Home? Unknown MIGRATION.17137 30318 Information not available 09/18/2022 Are There Any Guns Present In Your Home? No MIGRATION.78365 34403 Information not available 09/18/2022 Do You Use Insect Repellent Routinely? Yes MIGRATION.75672 29909 Information not available 09/18/2022 Where Do You Live? [facility] MIGRATION.21261 30492 Information not available 09/18/2022 Do You Have A Medical Power Of Flight Communications Operator? Yes MIGRATION.31771 28031 Information not available 09/18/2022 Have You Ever Been Counseled For Unhealthy Alcohol Use? No MIGRATION.23758 64149 Information not available 09/18/2022 Do You Have Any Pets? No MIGRATION.15609 96926 Information not available 09/18/2022 What Is Your Relationship Status? MIGRATION.97785 69917 Information not available 09/18/2022 Do You Use Your Seat Belt Or Car Seat Routinely? Yes MIGRATION.11104 25506 Information not available 09/18/2022 Do You Have Smoke And Carbon Monoxide Detectors In Your Home? Yes MIGRATION.50605 53634 Information not available 09/18/2022 Are You Passively Exposed To Smoke? No MIGRATION.87931 45073 Information not available 09/18/2022 Do You Or Have You Ever Used Smokeless Tobacco? Never Used Smokeless Tobacco MIGRATION.55504 46666 Information not available 09/18/2022 Are There Any Smokers In Your House? No MIGRATION.51622 98393 Information not available 09/18/2022 Do You Participate In Social Media? Yes MIGRATION.65680 73482 Information not available 09/18/2022 Do You Feel Stressed (tense, Restless, Nervous, Or Anxious, Or Unable To Sleep At Night)? [id number] MIGRATION.01891 29451 Information not available 09/18/2022 Do You Use Any Illicit Or Recreational Drugs? No MIGRATION.24273 59145 Information not available 09/18/2022 Do You Use Sunscreen Routinely? Yes MIGRATION.02496 21163 Information not available 09/18/2022 Has Tobacco Cessation Counseling Been Provided? No MIGRATION.33049 02179 Information not available 09/18/2022 Have You Recently Traveled Abroad? No MIGRATION.24831 39430 Information not available 09/18/2022 Are You Currently In School? No MIGRATION.40116 74490 Information not available 09/18/2022 Do You Have Any Dietary Restrictions? No MIGRATION.85190 40524 Information not available 09/18/2022 Do You Or Have You Ever Used Any Other Forms Of Tobacco Or Nicotine? No MIGRATION.75072 94899 Information not available 09/18/2022 Sex: Female Functional Status Question Answer Note LastModified by Organizat ion Details LastModified Time What is your exercise level? None MIGRATION.[id number] Information not available 09/18/2022 Mental Status None recorded. Family History Relationship Description Onset Age of this Age Resolved Age Notes LastModified by Organization Details LastModified Time Unspecified Relation Diabetes mellitus MIGRATION.035 [id number] Not available 09/18/2022 06:40:46 Unspecified Relation Hypertensive disorder MIGRATION.874 [id number] Not available 09/18/2022 06:40:46 Unspecified Relation Family history of malignant neoplasm MIGRATION.905 [id number] Not available 09/18/2022 06:40:46 Medical History Condition Response HYPERTENSION Y HIGH CHOLESTEROL / HYPERLIPIDEMIA Y Gynecological History Statement/Question Response If Post Menopausal, Age at Menopause 48 Date of Last Mammogram 04/02/2022 Most Recent Mammogram 04/02/2022 Most Recent Bone Density Obstetrics History GPAL:G 2 P 0 0 0 0 Immunizations Vaccine Type Date Status Note Provider Nam e and Address Organization Details Recorded Time SARS-COV-2 (COVID-19) vaccine, UNSPECIFIED 1 completed Not Available [facility] 01/27/2023 18:00:08 SARS-COV-2 (COVID-19) vaccine, UNSPECIFIED 1 completed Not Available [facility] 01/27/2023 18:00:08 Hep A, adult 8 completed Not Available [facility] 01/27/2023 18:00:09 Hep A, adult 9 completed Not Available [facility] 01/27/2023 18:00:08 Influenza, split virus, quadrivalent, PF 8 completed Not Available [facility] 01/27/2023 18:00:09 Hep A, adult 8 completed Not Available [facility] 01/27/2023 18:00:09 Influenza, split virus, quadrivalent, PF 7 completed Not Available [facility] 01/27/2023 18:00:09 Tdap 6 completed Not Available [facility] 01/27/2023 18:00:08 Past Encounters Encounter ID Performer Location Encounter Start Date Encounter Closed Date Diagnosis/Indication Diagnosis SNOMED-CT Code Diagnosis ICD10 Code Diagnosis Note [id number] [facility]un [address] [place] [address] 01/19/2021 00:00:00 01/19/2021 14:25:33 [id number] [facility] [address] [place] [address] 1 07/10/2021 00:00:00 07/10/2021 11:58:06 [id number] [facility] Shaun [address] [place], [place] [address] [place] [address] 10/16/2021 00:00:00 10/16/2021 15:20:05 [id number] [facility] Shaun [address] [place] [address] 11/15/2021 00:00:00 11/15/2021 13:01:28 [id number] [facility] [address] [address] [place] [address] 12/12/2021 00:00:00 12/12/2021 12:40:10 [id number] S_G [address] [address] 12/20/2021 00:00:00 12/20/2021 13:02:45 [id number] S_G [address] [address] 05/10/2022 00:00:00 05/10/2022 15:08:23 [id number] S[facility] [address] [address] 06/05/2022 00:00:00 06/05/2022 11:01:[id number] Rodriguez NP [facility] [address] 11/05/2022 16:37:11 11/05/2022 17:18:01 Bronchitis 23337098 J40 Albuterol prn.Symbic ort bid for 10 days. Rinse mouth after use. Acute righ t otitis media 152983671 H66.91 Medrol dose cristobal and doxy. Health Concerns Section Related Observation LastModified by Organization Detai ls LastModified Time None Recorded Concern Status LastModified by Organization Details LastModified Time None Recorded Advance Directives Directive Y: Payers Encounter Date Sequence Insurance Name Policy Number Policy Medina Covered Member ID Medina Member ID Guarantor Name 11/05/2022 1 [facility] [id number] Li Anthony [id number] Li Anthony Notes Date Note Type Note Provider Name and Address Organization Details Recorded Time 11/05/2022 text/html Here for cough and right ear ache. States she had similar symptoms last year.Symptoms for 9 days. No change in symptoms.Clear sinus drainage. cough dry, wheezing, labored breathing and sob. Fatigue. No chest pain. Not aware of fever.No loss of taste or smell. Mouth is dry. Leaving [place] , 2 days from today. Kamlesh Rodriguez NP [address] [facility], [facility] [address], [place], [address], [place] - [facility] 11/05/2022 17:13:37 OBGyn Episode No OBEpisode recorded.
--- OUTSIDE RECORDS SUMMARY | 2024-10-06 09:18 | XMS_ITS | Continuity of Care Document ---
Author Organization [facility] Address [address] [place] [address] Phone Care Team Providers Care Ginner Name Role Phone Sun OD, Raciel Unavailable Unavailable Advance Directives Directive Yes / No Effective Date File Name No Information Encounters Encounter Description Practice Location Reason(s) For Visit Diagnoses Date Provider Providers Copied on Encounter [facility], [address], [place], [place], [id number], [place] tel:[phone] [facility] No Information November-2 6-200 5 Snu OD Raciel. [address] , [address], [place], [address], [place]. tel:[phone] Family History Family Member Type Diagnosis Age At Onset No Information Payers Payer name Insurance type Covered libertarian ID Authoriza tirolf(s) [facility] Commercial CI [id number] Social History Type Description Quantity Date Captured [...]
--- OUTSIDE RECORDS SUMMARY | 2024-10-06 09:18 | XMS_ITS | CONTINUITY OF CARE DOCUMENT ---
Author Name mendoza donaldson Address Unknown Organization [facility] Address [address] [facility] [address] [place] [address] Phone [phone] Care Team Providers Care Sintering Plant Supervisor Name Role Phone Clinton SWAN, Ursula Unavailable Frances RESENDIZP-BCKatina Unavailable Frances PAREKH-Katina ONTIVEROS Unavailable INSURANCE PROVIDERS Payer name Policy type / Coverage type Justin red democrat ID [facility] Other [id number]
[2024-10-06] MEDS: TRANEXAMIC ACID 1,000 MG/10 ML AMPUL 1000 MG IV PUSH (09:37)
[2024-10-06] MEDS: LACTATED RINGERS 1,000 ML 30 ML IV CONT ×2 (09:38→12:33)
--- NOTE | 2024-10-06 10:37 | WPDHPUPDATE1 ---
History and Physical Update Update Date/Time: 10/06/24 10:37 History and Physical has been reviewed, including an updated exam of the patient. There are NO changes in the patient's condition. Risks, benefits, and alternatives have been discussed and questions answered. Patient agrees to proceed with procedure.
--- NOTE | 2024-10-06 10:39 | WPDHPUPDATE1 ---
History and Physical Update Update Date/Time: 10/06/24 10:39 History and Physical has been reviewed, including an updated exam of the patient. There are NO changes in the patient's condition. Risks, benefits, and alternatives have been discussed and questions answered. Patient agrees to proceed with procedure.
--- NOTE | 2024-10-06 10:41 | W.PM.PROC2 ---
Procedure Note - Detailed Date of Procedure 10/06/24 Pre-op Diagnosis Bilateral Breast Implant Rupture Post-op Diagnosis Same Procedure Performed Bilateral breast implant exchange Surgeon Rajat Knutson MD Anesthesia General Findings Previous implants: Bilateral Swathi [place] 305cc smooth est base 12-12.2 cm. Prepectoral. No seroma. No masses. Right intact - minimal capsular calcification - removed majority of capsule. Left ruptured - significant capsular calcification - removed entirety of capsule New implants: Bilateral Siobhan Inspedi SoftTouch 450cc Right REF# [id number] SN [id number] Left REF# [id number] SN [id number] Description of Procedure Preoperatively the risks, benefits, alternatives were discussed in extensive detail. I wanted to be very realistic about the risks involved as well as expectations. I was clear about how we could actually make her worse. Answered all questions to satisfaction. Voiced a clear understanding. Consent obtained. She was taken the operating room placed supine on the operating room table. Anesthesia provided by anesthesiology and prepped and draped in a standard sterile fashion. Surgical time-out was taken. 1% lidocaine and 0.25% Marcaine with epinephrine was used to provide a field block. Tegaderm nipple pradhan were placed. Fifteen blade used to excise the previous IMF scars. Dissection was continued down until the capsules were identified and excised a significant portion of the capsule which was sent to pathology. I then copiously irrigated with 3 L of saline solution on TUR tubing. Verified strict hemostasis. I then irrigated with Betadine containing solution. Using a no-touch technique and a Carlos funnel the implant was introduced into the pocket. This was closed with 2-0 PDS followed by 3-0 Monocryl and a running subcuticular 4-0 Monocryl followed by tissue glue. Dressings were placed. She was woken taken to the PACU without difficulty. All instrument sponge counts were correct at the end of the case. Estimated Blood Loss 20 Drains No Packing No Pathology None sent Complications No immediate complications Condition Stable Disposition PACU
--- NOTE | 2024-10-06 10:43 | SUR.PREOP ---
1035 Dr. Knutson at bedside to yovani patient. This RN and pt's (Yovani) at bedside during marking.
[2024-10-06] MEDS: BUPIVACAINE/EPINEPHRINE 0.25% 10 ML VIAL 30 ML INFILTRATE (11:00)
[2024-10-06] MEDS: ceFAZolin SODIUM 2 GM/20 ML SW SYRINGE IV PUSH (11:00)
[2024-10-06] MEDS: LIDOCAINE 1% LOCAL INJ 20 ML VIAL 30 ML INFILTRATE (11:09)
[2024-10-06] MEDS: NACL 0.9% IRRIG POUR BOTTLE 900 ML, GENTAMICIN SULFATE INJ 160 MG, ceFAZolin 2 GM, POVI... IRRIGATION (11:49)
--- NOTE | 2024-10-06 13:00 | WPDANESPN ---
Anes - Prog Note Post-Op Date/Time: 10/06/24 13:00 Cardiovascular status: normal Respiratory status: normal Airway patency: baseline Mental status: baseline Post-Op hydration status: normal Vital Signs: Last Vital Signs Temp 36.2 C L 10/06/24 12:33 Pulse 71 10/06/24 12:33 Resp 15 10/06/24 12:33 BP 146/77 H 10/06/24 12:33 Pulse Ox 100 10/06/24 12:33 O2 Del Method Simple Face Mask 10/06/24 12:33 O2 Flow Rate 7 10/06/24 12:33 Pain Score (VAS): 0 I/O: Intake & Output 10/05/24 10/06/24 10/06/24 23:59 07:59 15:59 Intake Total 500 Balance 500 Post-procedural complaints: none Patient Feedback: Patient satisfied with anesthetic care. Other Findings: Patient vital signs back to baseline. Patient denies nausea and vomiting. Patient's pain under control. Patient OK for discharge.
[2024-10-06] MEDS: fentaNYL CITRATE INJ (*CRX) 100 MCG/2 ML VIAL 25 MCG IV PUSH ×2 (13:15→13:25)
[2024-10-06] MEDS: oxyCODONE HCL (*CRX) 5 MG TAB IR PO (14:16)
== END 2024-10-06 14:36 | disposition home or self-care (01) ==
PROVIDERS: PCP Family Medicine; Visit Provider Surgery Plastic and Reconstructive Surgery
PROC: (CPT 19342; principal; 2024-10-06 10:30)
DX: T85.41XA Breakdown (mechanical) of breast prosthesis and implant, initial encounter (principal); Y83.8 Other surgical procedures as the cause of abnormal reaction of the patient, or of later complication, without mention of misadventure at the time of the procedure
CPT/HCPCS: 19371; 19325

== ENCOUNTER 2024-12-04 10:47 | Outpatient (CLI) | payer MEDICARE, SELFPAY ==
--- NOTE | ~2024-12-04 | DEXA_ITS ---
Bone Density Report Name: DONNY FULTON Age: 64 Sex: Female Ethnicity: White Date of : 1960 Indication: postmenopausal; screening for osteoporosis; height loss; Referring Provider: EBONI DAVIS Study: Bone densitometry was performed. Exam Date: December 04, 2024 Accession number: [id number] Bone Density: Region BMD T-score Z-score Classification AP Spine(L1-L4) 1.088 0.4 2.3 Normal Femoral Neck (Left) 0.579 -2.4 -0.8 Osteopenia Total Hip (Left) 0.761 -1.5 -0.2 Osteopenia Femoral Neck (Right) 0.621 -2.1 -0.4 Osteopenia Total Hip (Right) 0.769 -1.4 -0.1 Osteopenia Total Hip Mean 0.765 -1.5 -0.2 Osteopenia World Health Organization criteria for BMD impression classify patients as: Normal (T-score at or above -1.0), Osteopenia (T-score between -1.0 and -2.5), or Osteoporosis (T-score at or below -2.5). 10-year Fracture Risk(1): Major Osteoporotic Fracture 12% Hip Fracture 2.5% Reported Risk Factors: [place] (), Neck BMD=0.579, BMI=22.3 (1) FRAX(R) Version 3.08. Fracture probability calculated for an untreated patient. Fracture probability may be lower if the patient has received treatment. Clinical Information Provided by Patient: Has used the following medications: Fosamax (i.e. alendronate) Patient maximum height was 65.25 Menopause Age: 48 No regular weight bearing exercise Drinks caffeinated beverages Onset of menses at age 8 Number of children 2 Impression: The patient has low bone mass, based on the Left Femoral Neck T-score. The patient has an estimated ten-year risk of hip fracture of 2.5% and an estimated ten-year risk of major fracture of 12%, based on the WHO FRAX algorithm. Discussion: BONE DENSITY IS LOW AT ONE OR MORE SKELETAL SITES. This patient's lowest T-score is low at one or more skeletal sites. It meets the World Health Organization's (WHO) criteria for “low bone mass” (T-score between -1.0 and -2.5). The patient's 10-year risk of fracture as calculated by FRAX is less than the threshold where pharmacological therapy is recommended by the National Osteoporosis Foundation (NOF). However, all treatment decisions require clinical judgment and consideration of individual patient factors, including patient preferences, comorbidities, previous drug use, risk factors not captured in the FRAX model (e.g., frailty, falls, vitamin D deficiency, increased bone turnover, interval significant decline in bone density) and possible under or overestimation of fracture risk by FRAX. The patient should follow a healthful lifestyle (good nutrition with adequate calcium and vitamin D, and appropriate weight-bearing exercise). Follow-Up: Consider repeating this study in 2 to 3 years to reassess this patient's status, or sooner if there is some new clinical indication. Reported by: FABY on 12/04/2024 11:27:00 AM. Reviewed, dictated and finalized at location A.
--- OUTSIDE RECORDS SUMMARY | 2024-12-04 10:51 | XMS_ITS | Continuity of Care Document ---
Author Organization [facility] Address [address] [place] [address] Phone Care Team Providers Care Quality Process Auditor Name Role Phone Sun OD, Raciel Unavailable Unavailable Advance Directives Directive Yes / No Effective Date File Name No Information Encounters Encounter Description Practice Location Reason(s) For Visit Diagnoses Date Provider Providers Copied on Encounter [facility], [address], [place], [place], [id number], [place] tel:[phone] [facility] No Information November- 6-200 5 Sun OD Raciel. [address] , [address], [place], [address], [place]. tel:[phone] Family History Family Member Type Diagnosis Age At Onset No Information Payers Payer name Insurance type Covered libertarian ID Authoriza tirolf(s) [facility] Commercial CI [id number] Social History Type Description Quantity Date Captured [...]
--- OUTSIDE RECORDS SUMMARY | 2024-12-04 10:51 | XMS_ITS | Data Portability ---
Author Organization [place] - [facility] [place], Main Office Address [address] [place] [address] Care Team Providers Care Flaker Tender Name Role Phone KAMLESH RODRIGUEZ Primary Care Provider KAMLESH RODRIGUEZ Referring Provider [phone] Assessment No assessment recorded. Plan of Treatment Reminders Order Date Submit Date Provider Last Modified By Organization Details Last Modified Time Details Appointments None recorded. Lab None recorded. Referral None recorded. Procedures None recorded. Surgeries None recorded. Imaging None recorded. Medication Orders doxycycline hyclate 100 mg capsule 2022 023 [facility][id number], [address], [place], [id number], 3 17:03:53 Medrol (Cristobal) 4 mg tablets in a dose pack 2022 023 [facility]74643, [address], [place], [id number], 3 17:03:53 albuterol sulfate HFA 90 mcg/actuati on aerosol inhaler 2022 023 [facility]90594, [address], [place], [id number], 3 17:03:53 Symbicort 160 mcg-4.5 mcg/actuati on HFA aerosol inhaler 2022 023 [facility]25446, [address] [place], [place], [id number], 3 17:03:53 Patient TargetsNo targets recorded. Patient Instructions Encounter Date Encounter Id Patient Instructions Last Modified By Organization Details Last Modified Time 11/05/2022 [id number] prn. [email or web address] Not available 11/05 17:13:14 Reason for Referral None Reported. Results Created Date Observation Date Name Description Value Unit Range Abnormal Flag Note LastModifiedBy Organization Detail LastModifiedTime 04/02/20 22 04/02/2022 MAMMO , scree tere, bilat eral No observ ation record ed. [id number] [facility] [address], [place], [address], 09/18/2022 06:48:39 05/20/20 22 05/20/2022 XR, chest , 2 view No observ ation record ed. [id number] [place] [address], [place], [address], 09/18/2022 06:48:39 Result Notes None recorded. Problems Name Problem SNOMED Code Status Onset Date Resolution Date Notes Provider Name and Address Organization Details Recorded Time Impacted cerumen of bilateral ears 0234604407012 108 Active 2021 Not Available [facility] 3 18:00:08 Dysfunctio n of right eustachian tube 2031832243762 101 Active 2021 Not Available [facility] 3 18:00:08 Trigger finger of right hand 3706698808953 9101 Active 2019 Not Available [facility] 3 18:00:08 Excessive cerumen in ear canal 267995012 Active Not Available [facility] 3 18:00:08 Excessive cerumen in ear canal 600656944 Active 2017 Not Available [facility] 3 18:00:08 Otalgia 29560687 Active Not Available [facility] 3 18:00:08 Blood chemistry outside reference range 848749670 Active Not Available [facility] 3 18:00:08 Insomnia 899241526 Active 2019 Not Available [facility] 3 18:00:08 Raynaud's disease 840189481 Active Not Available [facility] 3 18:00:08 Mixed anxiety and depressive disorder 591308323 Active 2020 Not Available [facility] 3 18:00:08 Gastroesop hageal reflux disease 038239126 Active Not Available [facility] 3 18:00:08 Screening mammograph y Active 2020 Not Available [facility] 3 18:00:08 Vaginal dryness on intercours e 653634054 Active Not Available [facility] 3 18:00:08 Headache 59621126 Active 2021 Not Available [facility] 3 18:00:08 Thyroid function tests abnormal 170012360 Active Not Available [facility] 3 18:00:08 Osteopenia 869497777 Active 2019 Not Available [facility] 3 18:00:08 CREST syndrome 64330048 Active Not Available [facility] 3 18:00:08 Bronchitis 67111833 Active 2021 Not Available [facility] 3 18:00:08 Depressive disorder 50708270 Active Not Available [facility] 3 18:00:08 Osteoarthr osis of the carpometac arpal joint of the thumb 08090803 Active 2019 Not Available [facility] 3 18:00:08 Memory impairment 945581674 Active Not Available [facility] 3 18:00:08 Temporoman dibular joint disorder 29044798 Active Not Available [facility] 3 18:00:08 Anxiety 56828335 Active Not Available [facility] 3 18:00:08 Cough 87270986 Active Not Available [facility] 3 18:00:08 Compressio n fracture of thoracic vertebra 2828812750659 Active 2021 Not Available [facility] 3 18:00:08 Hyperlipid emia 90112003 Active 2021 Not Available [facility] 3 18:00:08 Dyspnea on exertion 49488401 Active 2019 Not Available [facility] 3 18:00:08 Osteoporos is 44591815 Active 2021 Not Available [facility] 3 18:00:08 Dyspareuni a 62334637 Active 2016 Not Available [facility] 3 18:00:08 Fatigue 49528889 Active Not Available [facility] 3 18:00:08 Acute right otitis media 421001345 Active 2022 Not Available [facility] 3 18:00:08 Notes:Some problems listed i n Documents: #[id number], #[id number], #[id number] could not be added to this patient's chart. Please review these documents and add these problems to the patient's chart manually as needed. Problem Notes None recorded. Procedures Surgical History Date Name Laterality Status Provider Name and Address Organization Details Recorded Time 04/02/20 Most Recent Mammogram completed Kamlesh Leija RN [place] [employer] 11/05/2022 16:53:16 colonoscopy completed Not Available [facility] 09/18/2022 06:40:44 Imaging Results Imaging Date Name Status LastModified by Organiz ation Details LastModified Time 04/02/2022 MAMMO, screening, bilateral completed [id number] [facility] [address], [place], [address], 09/18/2022 06:48:39 05/20/2022 XR, chest, 2 view completed [id number] [facility] [address], [place], [address], 09/18/2022 06:48:39 Procedure Notes None recorded. Medical [...] administ ered by the provider 06/20 completed [facility]: [id number] [phone] Not Available Not Available Not [...] administ ered by the provider 06/20 completed [facility]: [id number] 01-04 Not Available Not Available Not [...] kg/m2 162.56 cm 76 /min 97 [degF] 90949.4 2 g 112 mm[Hg] 76 mm[Hg] Not Available [facility] 3 06:43:31 Date Recorded Body mass index (BMI) Body height Oxygen saturation Oxygen saturation in Arterial blood by Pulse oximetry Heart rate Respiratory rate Body weight Systolic blood pressure Diastolic blood pressure Provider Name and Address Organization Details Last Updated DateTime 2 22.2 kg/m2 162.56 cm 98 % 98 % 76 /min 16 /min 43076.2 2 g 120 mm[Hg] 72 mm[Hg] Not Available [facility] 3 06:43:31 Date Recorded Body mass index (BMI) Body height Body temperature Body weight Systolic blood pressure Diastolic blood pressure Provider Name and Address Organization Details Last Updated DateTime 2 29.4 kg/m2 162.56 cm 98 [degF] 23581.7 5 g 128 mm[Hg] 76 mm[Hg] Not Available [facility] 3 06:43:31 Date Recorded Body mass index (BMI) Body height Body temperature Body weight Systolic blood pressure Diastolic blood pressure Provider Name and Address Organization Details Last Updated DateTime 2 20.8 kg/m2 162.56 cm 98.2 [degF] 57197.6 8 g 132 mm[Hg] 84 mm[Hg] Not Available [facility] 3 06:43:31 Date Recorded Body height Body mass index (BMI) Body weight Body temperature Heart rate Respiratory rate Oxygen saturation Oxygen saturation in Arterial blood by Pulse oximetry Systolic blood pressure Diastolic blood pressure Provider Name and Address Organization Details Last Updated DateTime 3 162.56 cm 21 kg/m2 15834.9 7 g 101.9 [degF] 94 /min 20 /min 94 % 94 % 120 mm[Hg] 78 mm[Hg] Kamlesh Leija RN [place] [employer] 3 16:51:44 Social History Question Answer Notes LastModified by Jike Xueyuan ion Details LastModified Time Tobacco Smoking Status Never Smoker Not Available [facility] 09/18/2022 06:40:39 Do You Have An Advance Directive? Yes [id number] Information not available 09/18/2022 Do You Wear A Helmet When Biking? Yes MIGRATION.566827 5094 Information not available 09/18/2022 Is Blood Transfusion Acceptable In An Emergency? Yes [email or web address] Information not available 11/05/2022 What Is Your Level Of Caffeine Consumption? Moderate MIGRATION.031455 1074 Information not available 09/18/2022 How Much Tobacco Do You Chew? None MIGRATION.196448 1497 Information not available 09/18/2022 In The 14 Days Before Symptom Onset, Have You Had Close Contact With A Laboratory-confir med COVID-19 While That Case Was Ill? No MIGRATION.815907 5561 Information not available 09/18/2022 In The 14 Days Before Symptom Onset, Have You Had Close Contact With A Person Who Is Under Investigation For COVID-19 While That Person Was Ill? No MIGRATION.657049 2286 Information not available 09/18/2022 What Type Of Diet Are You Following? REGULAR MIGRATION.072208 8683 Information not available 09/18/2022 Which Illicit Or Recreational Drugs Have You Used? None MIGRATION.946630 7973 Information not available 09/18/2022 What Is The Highest Grade Or Level Of School You Have Completed Or The Highest Degree You Have Received? [id number] MIGRATION.346308 7396 Information not available 09/18/2022 Have There Been Any Changes To Your Family Or Social Situation? No MIGRATION.175617 0627 Information not available 09/18/2022 What Is The Fluoride Status Of Your Home? Unknown MIGRATION.896037 9630 Information not available 09/18/2022 Are There Any Guns Present In Your Home? No MIGRATION.186609 7513 Information not available 09/18/2022 Do You Use Insect Repellent Routinely? Yes MIGRATION.443964 2494 Information not available 09/18/2022 Where Do You Live? [facility] MIGRATION.432533 3620 Information not available 09/18/2022 Do You Have A Medical Power Of Warp Coiler? Yes MIGRATION.131410 3458 Information not available 09/18/2022 Have You Ever Been Counseled For Unhealthy Alcohol Use? No MIGRATION.146172 0472 Information not available 09/18/2022 Do You Have Any Pets? No MIGRATION.716755 3917 Information not available 09/18/2022 What Is Your Relationship Status? MIGRATION.968543 0949 Information not available 09/18/2022 Do You Use Your Seat Belt Or Car Seat Routinely? Yes MIGRATION.104044 0236 Information not available 09/18/2022 Do You Have Smoke And Carbon Monoxide Detectors In Your Home? Yes MIGRATION.802465 4570 Information not available 09/18/2022 Are You Passively Exposed To Smoke? No MIGRATION.767394 9353 Information not available 09/18/2022 Are There Any Smokers In Your House? No MIGRATION.970929 9406 Information not available 09/18/2022 Do You Participate In Social Media? Yes MIGRATION.197538 8302 Information not available 09/18/2022 Do You Use Sunscreen Routinely? Yes MIGRATION.250545 8105 Information not available 09/18/2022 Has Tobacco Cessation Counseling Been Provided? No MIGRATION.675781 8308 Information not available 09/18/2022 Have You Recently Traveled Abroad? No MIGRATION.227868 3031 Information not available 09/18/2022 Are You Currently In School? No MIGRATION.705909 7999 Information not available 09/18/2022 Do You Have Any Dietary Restrictions? No MIGRATION.005711 0688 Information not available 09/18/2022 Sex: Female Functional Status Question Answer Note LastModified by Organizat ion Details LastModified Time Do you use any illicit or recreational drugs? No MIGRATION.420888 8548 Information not available 09/18/2022 Do you or have you ever used any other forms of tobacco or nicotine? No MIGRATION.579837 6433 Information not available 09/18/2022 What is your level of alcohol consumption? Moderate MIGRATION.089531 4276 Information not available 09/18/2022 Do you or have you ever used smokeless tobacco? 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 Never used electronic cigarettes MIGRATION.940506 7693 Information not available 09/18/2022 What is your exercise level? None MIGRATION.981472 1443 Information not available 09/18/2022 Mental Status Question Answer Note LastModified by Organizat ion Details LastModified Time Do you feel stressed (tense, restless, nervous, or anxious, or unable to sleep at night)? [id number] MIGRATION.[id number] 6 Information not available 09/18/2022 Family History Relationship Description Onset Age of this Age Resolved Age Notes LastModified by Organization Details LastModified Time Unspecified Relation Diabetes mellitus MIGRATION.206 [id number] Not available 09/18/2022 06:40:46 Unspecified Relation Hypertensive disorder MIGRATION.674 [id number] Not available 09/18/2022 06:40:46 Unspecified Relation Family history of malignant neoplasm MIGRATION.890 4557425 Not available 09/18/2022 06:40:46 Medical History Condition [...] (COVID-19) vaccine, UNSPECIFIED 1 completed Not Available [facility] 01/27/2023 18:00:08 SARS-COV-2 (COVID-19) vaccine, UNSPECIFIED 1 completed Not Available [facility] 01/27/2023 18:00:08 Hep A, adult 8 completed Not Available [facility] 01/27/2023 18:00:09 Hep A, adult 9 completed Not Available [facility] 01/27/2023 18:00:08 Influenza, split virus, quadrivalent, PF 8 completed Not Available [facility] 01/27/2023 18:00:09 Hep A, adult 8 completed Not Available [facility] 01/27/2023 18:00:09 Influenza, split virus, quadrivalent, PF 7 completed Not Available [facility] 01/27/2023 18:00:09 Tdap 6 completed Not Available [facility] 01/27/2023 18:00:08 Past Encounters Encounter ID Performer Location Encounter Start Date Encounter Closed Date Diagnosis/Indication Diagnosis SNOMED-CT Code Diagnosis ICD10 Code Diagnosis Note [id number] Theodore Key MD [facility] [address] [address] 01/19/2021 00:00:00 01/19/2021 14:25:33 [id number] Theodore Key MD [facility] [address] [place] [id number] 07/10/2021 00:00:00 07/10/2021 11:58:06 [id number] Theodore Key MD [facility] [address] [place] [id number] 1 10/16/2021 00:00:00 10/16/2021 15:20:05 [id number] Theodore Key MD [facility] [address] [place] [id number] 1 11/15/2021 00:00:00 11/15/2021 13:01:28 [id number] Theodore Key MD [facility] [address] [place] [id number] 1 12/12/2021 00:00:00 12/12/2021 12:40:10 [id number] Theodore Key MD [facility] [address] [place] [id number] 1 12/20/2021 00:00:00 12/20/2021 13:02:45 [id number] Theodore Key MD [facility] [address] [place] [id number] 1 05/10/2022 00:00:00 05/10/2022 15:08:23 [id number] Theodore Key MD [facility] [address] [place] [id number] 1 06/05/2022 00:00:00 06/05/2022 11:01:24 [id number] Kamlesh Rodriguez NP [facility] [address] [place] [id number] 1 11/05/2022 16:37:11 11/05/2022 17:18:01 Bronchitis 85570178 J40 Albuterol prn.Symbic ort bid for 10 days. Rinse mouth after use. Acute righ t otitis media 998753632 H66.91 Medrol dose cristobal and doxy. Health Concerns Section Related Observation LastModified by Organization Detai ls LastModified Time None Recorded Concern Status LastModified by Organization Details LastModified Time None Recorded Advance Directives Directive Y: Payers Encounter Date Sequence Insurance Name Policy Number Policy Medina Covered Member ID Medina Member ID Guarantor Name 11/05/2022 1 [facility] [id number] Li Anthony [id number] Li Anthony Notes Date Note Type Note [...] or smell. Mouth is dry. Leaving for [facility] , 2 days from today. Kamlesh Rodrigeuz NP [address] [facility] [address], [place], [address], [place] - [facility] 11/05/2022 17:13:37 OBGyn Episode No OBEpisode recorded.
== END 2024-12-04 10:48 | disposition home or self-care (01) ==
LOC: ANHIMG 10:49
PROVIDERS: PCP Family Medicine; Visit Provider Family Medicine
DX: M85.88 Other specified disorders of bone density and structure, other site (principal); M85.852 Other specified disorders of bone density and structure, left thigh; M85.851 Other specified disorders of bone density and structure, right thigh
CPT/HCPCS: 77080

== ENCOUNTER 2025-01-04 09:49 | Outpatient (CLI) | payer MEDICARE, SELFPAY ==
--- OUTSIDE RECORDS SUMMARY | 2025-01-04 10:49 | XMS_ITS | CONTINUITY OF CARE DOCUMENT ---
Author Name mendoza donaldson Address Unknown Organization [facility] Address [address] [place] [address] Phone [phone] Care Team Providers Care Arson Investigator Name Role Phone Clinton SWAN, Ursula Unavailable Frances RESENDIZP-BCKatina Unavailable Frances PAREKH-Katina ONTIVEROS Unavailable INSURANCE PROVIDERS Payer name Policy type / Coverage type [place] red libertarian ID [facility] Other [id number]
--- OUTSIDE RECORDS SUMMARY | 2025-01-04 10:49 | XMS_ITS | Continuity of Care Document ---
Author Organization [facility] Address [address] [place] [address] Phone Care Team Providers Care Cleaning Maid Name Role Phone Sun OD, Raciel Unavailable Unavailable Advance Directives Directive Yes / No Effective Date File Name No Information Encounters Encounter Description Practice Location Reason(s) For Visit Diagnoses Date Provider Providers Copied on Encounter [facility], [address], [place], [place], [id number], [place] tel:[phone] [facility] No Information November-2 6-200 5 Sun OD Raciel. [address] , [address], [place], [address], [place]. tel:[phone] Family History Family Member Type Diagnosis Age At Onset No Information Payers Payer name Insurance type Covered constitution party ID Authoriza tirolf(s) [facility] Commercial CI [id number] Social History Type Description Quantity Date Captured [...]
--- OUTSIDE RECORDS SUMMARY | 2025-01-04 10:50 | XMS_ITS | Data Portability ---
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 Plan of Treatment Reminders Order Date Submit Date Provider Last Modified By Organization Details Last Modified Time Details Appointments None recorded. Lab None recorded. Referral None recorded. Procedures None recorded. Surgeries None recorded. Imaging None recorded. Medication Orders doxycycline hyclate 100 mg capsule 2022 023 [id number], [address], [place], [id number], 3 17:03:53 Medrol (Cristobal) 4 mg tablets in a dose pack 2022 023 [facility]85397, [address], [place], [id number], 3 17:03:53 albuterol sulfate HFA 90 mcg/actuati on aerosol inhaler 2022 023 [place]42, [address], [place], [id number], 3 17:03:53 Symbicort 160 mcg-4.5 mcg/actuati on HFA aerosol inhaler 2022 023 [place] [facility]01954, [address], [place], [id number], 3 17:03:53 Patient TargetsNo targets recorded. Patient Instructions Encounter Date Encounter Id Patient Instructions Last Modified By Organization Details Last Modified Time 11/05/2022 [id number] [email or web address]. [email or web address] Not available 11/05 17:13:14 Reason for Referral None Reported. Results Created Date Observation Date Name Description Value Unit Range Abnormal Flag Note LastModifiedBy Organization Detail LastModifiedTime 04/02/20 22 04/02/2022 MAMMO , scree tere, bilat eral No observ ation record ed. [id number] [facility] [address], [place], [address], 09/18/2022 06:48:39 05/20/20 22 05/20/2022 XR, chest , 2 view No observ ation record ed. [id number] [place] [address], [place], [address], 09/18/2022 06:48:39 Result Notes None recorded. Problems Name Problem SNOMED Code Status Onset Date Resolution Date Notes Provider Name and Address Organization Details Recorded Time Impacted cerumen of bilateral ears 8514215173500 108 Active 2021 Not Available [facility] 3 18:00:08 Dysfunctio n of right eustachian tube 8363225379142 101 Active 2021 Not Available [facility] 3 18:00:08 Trigger finger of right hand 0245903919993 9101 Active 2019 Not Available [facility] 3 18:00:08 Excessive cerumen in ear canal 838133308 Active Not Available [facility] 3 18:00:08 Excessive cerumen in ear canal 754263837 Active 2017 Not Available [facility] 3 18:00:08 Otalgia 53387543 Active Not Available [facility] 3 18:00:08 Blood chemistry outside reference range 478102845 Active Not Available [facility] 3 18:00:08 Insomnia 382099752 Active 2019 Not Available [facility] 3 18:00:08 Raynaud's disease 393573391 Active Not Available [facility] 3 18:00:08 Mixed anxiety and depressive disorder 819204386 Active 2020 Not Available [facility] 3 18:00:08 Gastroesop hageal reflux disease 064580650 Active Not Available [facility] 3 18:00:08 Screening mammograph y Active 2020 Not Available [facility] 3 18:00:08 Vaginal dryness on intercours e 976982050 Active Not Available [facility] 3 18:00:08 Headache 93409286 Active 2021 Not Available [facility] 3 18:00:08 Thyroid function tests abnormal 775085074 Active Not Available [facility] 3 18:00:08 Osteopenia 634798397 Active 2019 Not Available [facility] 3 18:00:08 CREST syndrome 57145153 Active Not Available [facility] 3 18:00:08 Bronchitis 87263472 Active 2021 Not Available [facility] 3 18:00:08 Depressive disorder 84515906 Active Not Available [facility] 3 18:00:08 Osteoarthr osis of the carpometac arpal joint of the thumb 24633155 Active 2019 Not Available [facility] 3 18:00:08 Memory impairment 403556760 Active Not Available [facility] 3 18:00:08 Temporoman dibular joint disorder 00933751 Active Not Available [facility] 3 18:00:08 Anxiety 76441149 Active Not Available [facility] 3 18:00:08 Cough 34473983 Active Not Available [facility] 3 18:00:08 Compressio n fracture of thoracic vertebra 8342304599146 Active 2021 Not Available [facility] 3 18:00:08 Hyperlipid emia 54571074 Active 2021 Not Available [facility] 3 18:00:08 Dyspnea on exertion 97599906 Active 2019 Not Available [facility] 3 18:00:08 Osteoporos is 55709918 Active 2021 Not Available [facility] 3 18:00:08 Dyspareuni a 15697333 Active 2016 Not Available [facility] 3 18:00:08 Fatigue 88977433 Active Not Available [facility] 3 18:00:08 Acute right otitis media 185145940 Active 2022 Not Available [facility] 3 18:00:08 Notes:Some problems listed i n Documents: #[id number], #[id number], #[id number] could not be added to this patient's chart. Please review these documents and add these problems to the patient's chart manually as needed. Problem Notes None recorded. Procedures Surgical History Date Name Laterality Status Provider Name and Address Organization Details Recorded Time 04/02/20 Most Recent Mammogram completed Kamlesh Leija RN [place] - [facility] 11/05/2022 16:53:16 colonoscopy completed Not Available [facility] 09/18/2022 06:40:44 Imaging Results None recorded. Procedure Notes None recorded. Medical Equipment None [...] administ ered by the provider 06/20 completed [facility]: 0003-049 4-20 Not Available Not Available Not Available dexametha [...] administ ered by the provider 06/20 completed [facility]: 0409-427 01-04 Not Available Not Available Not [...] Available Not Available Vitals Date Recorded Body height Body mass index (BMI) Body weight Body temperature Heart rate Respiratory rate Oxygen saturation Oxygen saturation in Arterial blood by Pulse oximetry Systolic blood pressure Diastolic blood pressure Provider Name and Address Organization Details Last Updated DateTime 3 162.56 cm 21 kg/m2 64578.9 7 g 101.9 [degF] 94 /min 20 /min 94 % 94 % 120 mm[Hg] 78 mm[Hg] Kamlesh Leija RN [place] - [facility] 3 16:51:44 Date Recorded Body mass index (BMI) Body height Heart rate Body temperature Body weight Systolic blood pressure Diastolic blood pressure Provider Name and Address Organization Details Last Updated DateTime 2 22.1 kg/m2 162.56 cm 76 /min 97 [degF] 03019.4 2 g 112 mm[Hg] 76 mm[Hg] Not Available [facility] 3 06:43:31 Date Recorded Body mass index (BMI) Body height Oxygen saturation Oxygen saturation in Arterial blood by Pulse oximetry Heart rate Respiratory rate Body weight Systolic blood pressure Diastolic blood pressure Provider Name and Address Organization Details Last Updated DateTime 2 22.2 kg/m2 162.56 cm 98 % 98 % 76 /min 16 /min 69876.2 2 g 120 mm[Hg] 72 mm[Hg] Not Available [facility] 3 06:43:31 Date Recorded Body mass index (BMI) Body height Body temperature Body weight Systolic blood pressure Diastolic blood pressure Provider Name and Address Organization Details Last Updated DateTime 2 29.4 kg/m2 162.56 cm 98 [degF] 01547.7 5 g 128 mm[Hg] 76 mm[Hg] Not Available [facility] 3 06:43:31 Date Recorded Body mass index (BMI) Body height Body temperature Body weight Systolic blood pressure Diastolic blood pressure Provider Name and Address Organization Details Last Updated DateTime 2 20.8 kg/m2 162.56 cm 98.2 [degF] 61743.6 8 g 132 mm[Hg] 84 mm[Hg] Not Available [facility] 3 06:43:31 Social History Question Answer Notes LastModified by Organizat ion Details LastModified Time Tobacco Smoking Status Never Smoker Not Available [facility] 09/18/2022 06:40:39 Do You Have An Advance Directive? Yes [id number] Information not available 09/18/2022 Do You Wear A Helmet When Biking? Yes MIGRATION.390016 8150 Information not available 09/18/2022 Is Blood Transfusion Acceptable In An Emergency? Yes [email or web address] Information not available 11/05/2022 What Is Your Level Of Caffeine Consumption? Moderate MIGRATION.[id number] 8036 Information not available 09/18/2022 How Much Tobacco Do You Chew? None MIGRATION.225310 0598 Information not available 09/18/2022 In The 14 Days Before Symptom Onset, Have You Had Close Contact With A Laboratory-confir med COVID-19 While That Case Was Ill? No MIGRATION.[id number] 9659 Information not available 09/18/2022 In The 14 Days Before Symptom Onset, Have You Had Close Contact With A Person Who Is Under Investigation For COVID-19 While That Person Was Ill? No MIGRATION.438245 1334 Information not available 09/18/2022 What Type Of Diet Are You Following? REGULAR MIGRATION.681943 5167 Information not available 09/18/2022 Which Illicit Or Recreational Drugs Have You Used? None MIGRATION.199904 3740 Information not available 09/18/2022 What Is The Highest Grade Or Level Of School You Have Completed Or The Highest Degree You Have Received? MH44704-5 MIGRATION.676002 1385 Information not available 09/18/2022 Have There Been Any Changes To Your Family Or Social Situation? No MIGRATION.585241 1558 Information not available 09/18/2022 What Is The Fluoride Status Of Your Home? Unknown MIGRATION.353292 7340 Information not available 09/18/2022 Are There Any Guns Present In Your Home? No MIGRATION.464637 9246 Information not available 09/18/2022 Do You Use Insect Repellent Routinely? Yes MIGRATION.758834 4008 Information not available 09/18/2022 Where Do You Live? [place] MIGRATION.755875 4485 Information not available 09/18/2022 Do You Have A Medical Power Of Sales Analytics Manager? Yes MIGRATION.180257 9367 Information not available 09/18/2022 Have You Ever Been Counseled For Unhealthy Alcohol Use? No MIGRATION.748104 4856 Information not available 09/18/2022 Do You Have Any Pets? No MIGRATION.082182 9735 Information not available 09/18/2022 What Is Your Relationship Status? MIGRATION.936548 1767 Information not available 09/18/2022 Do You Use Your Seat Belt Or Car Seat Routinely? Yes MIGRATION.613670 0235 Information not available 09/18/2022 Do You Have Smoke And Carbon Monoxide Detectors In Your Home? Yes MIGRATION.512155 0996 Information not available 09/18/2022 Are You Passively Exposed To Smoke? No MIGRATION.271498 7513 Information not available 09/18/2022 Are There Any Smokers In Your House? No MIGRATION.277293 3368 Information not available 09/18/2022 Do You Participate In Social Media? Yes MIGRATION.001646 9741 Information not available 09/18/2022 Do You Use Sunscreen Routinely? Yes MIGRATION.847238 1678 Information not available 09/18/2022 Has Tobacco Cessation Counseling Been Provided? No MIGRATION.641290 8513 Information not available 09/18/2022 Have You Recently Traveled Abroad? No MIGRATION.206320 1813 Information not available 09/18/2022 Are You Currently In School? No MIGRATION.448860 8461 Information not available 09/18/2022 Do You Have Any Dietary Restrictions? No MIGRATION.453458 9705 Information not available 09/18/2022 Sex: Female Functional Status Question Answer Note LastModified by Organizat ion Details LastModified Time Do you use any illicit or recreational drugs? No MIGRATION.471142 6208 Information not available 09/18/2022 Do you or have you ever used any other forms of tobacco or nicotine? No MIGRATION.025425 5971 Information not available 09/18/2022 What is your level of alcohol consumption? Moderate MIGRATION.817547 3168 Information not available 09/18/2022 Do you or have you ever used smokeless tobacco? 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 Never used electronic cigarettes MIGRATION.694375 8944 Information not available 09/18/2022 What is your exercise level? None MIGRATION.336091 9722 Information not available 09/18/2022 Mental Status Question Answer Note LastModified by Organizat ion Details LastModified Time Do you feel stressed (tense, restless, nervous, or anxious, or unable to sleep at night)? [id number] MIGRATION.[id number] 6 Information not available 09/18/2022 Family History Relationship Description Onset Age of this Age Resolved Age Notes LastModified by Organization Details LastModified Time Unspecified Relation Diabetes mellitus [id number] Not available 09/18/2022 06:40:46 Unspecified Relation Hypertensive disorder MIGRATION.078 [id number] Not available 09/18/2022 06:40:46 Unspecified Relation Family history of malignant neoplasm MIGRATION.060 2016002 Not available 09/18/2022 06:40:46 Medical History Condition [...] (COVID-19) vaccine, UNSPECIFIED 1 completed Not Available [facility] 01/27/2023 18:00:08 SARS-COV-2 (COVID-19) vaccine, UNSPECIFIED 1 completed Not Available [facility] 01/27/2023 18:00:08 Hep A, adult 8 completed Not Available [facility] 01/27/2023 18:00:09 Hep A, adult 9 completed Not Available [facility] 01/27/2023 18:00:08 Influenza, split virus, quadrivalent, PF 8 completed Not Available [facility] 01/27/2023 18:00:09 Hep A, adult 8 completed Not Available [facility] 01/27/2023 18:00:09 Influenza, split virus, quadrivalent, PF 7 completed Not Available [facility] 01/27/2023 18:00:09 Tdap 6 completed Not Available [facility] 01/27/2023 18:00:08 Past Encounters Encounter ID Performer Location Encounter Start Date Encounter Closed Date Diagnosis/Indication Diagnosis SNOMED-CT Code Diagnosis ICD10 Code Diagnosis Note [id number] Theodore Key MD [facility] [address] [place] [address] 01/19/2021 00:00:00 01/19/2021 14:25:33 [id number] Theodore Key MD [facility] [address] [place], [place] [address] [place] [address] 07/10/2021 00:00:00 07/10/2021 11:58:06 [id number] Theodore Key MD [facility] [place], [place] [address] [place] [address] 10/16/2021 00:00:00 10/16/2021 15:20:05 [id number] Theodore Key MD [facility] [address] [place], [place] [address] [place] [address] 11/15/2021 00:00:00 11/15/2021 13:01:28 [id number] Theodore Key MD [facility] [address] [place] [address] 12/12/2021 00:00:00 12/12/2021 12:40:10 [id number] Theodore Key MD [facility] [address] [place] [address] 12/20/2021 00:00:00 12/20/2021 13:02:45 [id number] Theodore Key MD [facility] [address] 05/10/2022 00:00:00 05/10/2022 15:08:23 [id number] Theodore Key MD [facility] [address] 06/05/2022 00:00:00 06/05/2022 11:01:24 [id number] Kamlesh Rodriguez NP [facility] [address] 11/05/2022 16:37:11 11/05/2022 17:18:01 Bronchitis 04175154 J40 Albuterol prn.Symbic ort bid for 10 days. Rinse mouth after use. Acute righ t otitis media 038563867 H66.91 Medrol dose cristobal and doxy. Health Concerns Section Related Observation LastModified by Organization Detai ls LastModified Time None Recorded Concern Status LastModified by Organization Details LastModified Time None Recorded Advance Directives Directive Y: Payers Insurance Date Sequence Insurance Name Policy Number Policy Medina Covered Member ID Medina Member ID Guarantor Name 11/05/2022 1 [facility] [id number] Li Anthony [id number] Li Anthony Notes Date Note Type Note [...] days from today. Kamlesh Rodriguez NP [address] [facility], [address] [address], [place], [address], [facility] 11/05/2022 17:13:37 OBGyn Episode No OBEpisode recorded.
[2025-01-04 19:20] LABS: Hematocrit 36.8 % (37.0-47.0); Hemoglobin 12.1 g/dL (12.0-15.0); Mean Corpuscular HGB Conc 32.9 g/dl (32-36); Mean Corpuscular Hemoglobin 29.6 pg (26-34); Mean Platelet Volume 11.2 fl (7.4-10.4); Platelet Count Result 231 k/mm3 (150-375); Red Blood Count 4.09 M/mm3 (4.2-5.4); White Blood Count 4.7 K/mm3 (4.5-10.0)
[2025-01-04 19:43] LABS: Alanine Aminotransferase 15 U/L (6-35); Alkaline Phosphatase 42 U/L (38-126); Anion Gap 6 mmol/L (4-12); Aspartate Amino Transferase 29 U/L (14-36); Bilirubin,Total 0.5 mg/dL (0.2-1.3); Blood Urea Nitrogen 12 mg/dL (7-17); Calcium 8.9 mg/dL (8.4-10.2); Carbon Dioxide 24 mmol/L (22-30); Chloride 102 mmol/L (98-107); Cholesterol 206 mg/dL (0-200); Estimated Glomerular Filt Rate > 60; Glucose 84 mg/dL (65-110); HDL Direct 63 mg/dL; Potassium 4.3 mmol/L (3.4-5.0); Sodium 132 mmol/L (137-145); Total Protein 6.5 g/dL (6.3-8.2); Triglycerides 49 mg/dL (<150)
[2025-01-04 19:54] LABS: LDL Cholesterol Direct 104 mg/dL
[2025-01-04 19:55] LABS: Hemoglobin A1C 5.4 % (<5.7)
[2025-01-04 20:12] LABS: Thyroid Stimulating Hormone 0.369 uIU/mL (0.465-4.680)
== END 2025-01-04 09:50 | disposition home or self-care (01) ==
LOC: ANHGOSHLAB 09:51
PROVIDERS: PCP Family Medicine; Visit Provider Family Medicine
DX: F41.9 Anxiety disorder, unspecified (principal); Z79.899 Other long term (current) drug therapy; E78.5 Hyperlipidemia, unspecified; R73.03 Prediabetes; E55.9 Vitamin D deficiency, unspecified
CPT/HCPCS: 36415; 80053; 80061; 82652; 83036; 84443; 85027

== ENCOUNTER 2025-07-19 08:14 | Emergency (ER) | payer MEDICARE, SELFPAY ==
[2025-07-19 08:35] VITALS: BP 79/55; PULSE 92; RESP 18; TEMP 36.7
--- NOTE | 2025-07-19 08:36 | PC.NURSE ---
pt has raynaud's unable to obtain pulse ox. tried multiple ways
--- NOTE | 2025-07-19 08:39 | PC.NURSE ---
[facility] called for transport
--- NOTE | 2025-07-19 08:46 | ED.WEAKNESS ---
HPI - Weakness General Chief complaint: Upper Respiratory Infection Stated complaint: Sinus Infection Symptoms/Diarrhea/Nausea Time Seen by Provider: 07/19/25 08:30 Source: patient and RN notes reviewed Mode of arrival: ambulatory Limitations: no limitations History of Present Illness HPI Narrative: 65-year-old female presents to the [facility] complaining of upper respiratory symptoms for approximately 1 week. Patient reports having cough, congestion, diarrhea, nausea, loss appetite. Patient says she has been drinking plenty of fluids. Patient says is her symptoms are getting worse, she is feeling much weaker. Patient's reports feeling lightheaded. Patient denies any difficulty breathing, chest pain, vomiting, blood in her stools, fevers, other symptoms. Patient's blood pressure hypotensive and the triage room. Patient denies any significant past medical problems. Related Data Home Medications ?Medication ?Instructions ?Recorded ?Confirmed ?Last Taken ?Type progesterone micronized 200 mg 200 mg PO QPM 07/27/24 07/05/25 10/05/24 History capsule vit A 225 mcg-D3 2.5 mcg-E 16.75 1 cap PO DAILY 07/27/24 07/05/25 10/02/24 History kw-yasutt-fthe-selenom-herb capsule (MedCaps T3) calcium carbonate 600 mg PO BID 12/08/24 07/05/25 Unknown History cholecalciferol (vitamin D3) 25 25 mcg PO DAILY 12/08/24 07/05/25 Unknown History mcg (1,000 unit) capsule Allergies Allergy/AdvReac Type Severity Reaction Status Date / Time kiwi Allergy Severe THROAT Verified 07/19/25 09:40 SWELLING Review of Systems Review of Systems: CONSTITUTIONAL: Denies fever, chills, or sweats. EYES: Denies visual changes, redness, or discharge. ENT: Denies rhinorrhea, congestion, sore throat, or otalgia. Positive for congestion CARDIOVASCULAR: Denies chest pain, palpitations, or edema. Positive for lightheadedness. RESPIRATORY: Positive for cough. Negative for wheezing or dyspnea. GASTROINTESTINAL: Denies abdominal pain, nausea, vomiting, or diarrhea. GENITOURINARY: Denies dysuria or hematuria. SKIN: Denies rash or itching. MUSCULOSKELETAL: Denies back pain, joint pain, or myalgia. NEUROLOGIC: Denies headache, numbness. Positive for weakness. PSYCHIATRIC: Denies anxiety or depression. All other systems reviewed are negative, except as documented in HPI. 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 Normal colonoscopy Dyspnea on exertion Memory impairment Fatigue Osteopenia Osteoarthritis CREST syndrome Vaginal dryness Dyspareunia GERD (gastroesophageal reflux disease) Temporomandibular joint disorders Raynauds disease Otalgia Excessive cerumen in ear canal Insomnia Depression Acute adjustment disorder with anxiety Surgical History Surgical History H/O breast augmentation H/O prior ablation treatment Family History Family History Mother Diabetes mellitus Hypertension Malignant carcinoid tumor of lung Father Dementia Heart disease Kidney disease Alcoholism Lung cancer Depression Anxiety Grandparent Alcoholism Diabetes mellitus Social History Social History Smoking status: Never smoker Second hand tobacco smoke exposure: Yes Alcohol intake: former Alcohol use details: quit 2021 Substance use: never Substance use type: does not use Lack of Transportation: No Lack of Food: Never True Current Housing: I Have Housing Concerned About Future Housing: No Difficulty Paying Gas/Electric Bills: No Difficulty Paying for Meds: No Currently Unemployed: No Education: High School Diploma/GED Living arrangements: with family Spiritual care concerns: No Comments At the time of my signature, I reviewed and agree with the nursing past medical, surgical, social, and family history. There is no relevant family history pertinent to the patient complaint. Exam Narrative: GENERAL: This is a well-nourished, well-developed adult, in no apparent distress. They are nontoxic appearing. Patient is ill-appearing and lethargic, but responsive HEAD: normocephalic, atraumatic. EYES: Sclera clear/white. Conjunctiva normal. Vision is grossly intact. Extraocular movements intact EARS: External ears normal, . Hearing grossly intact. NOSE: External nose normal THROAT: Mucous membranes moist, NECK: Neck supple, CARDIOVASCULAR: Regular rate and rhythm without murmurs, gallops, or rubs. RESPIRATORY: Clear to auscultation. Breath sounds equal bilaterally. No wheezes, rales, or rhonchi. SKIN: warm, Dry, intact with no suspicious lesions or rash, good texture and turgor. NEURO: awake, alert, and oriented to person, place and time. There were no obvious focal neurologic abnormalities. EXTREMITIES: No joint tenderness, effusion, or edema noted. BACK: Nontender without deformity. Course Course Level of Care: Express Care Visit Vital Signs Vital signs: Vital Signs Temperature 98.1 F 07/19/25 08:35 Pulse Rate 92 07/19/25 08:35 Respiratory Rate 18 07/19/25 08:35 Blood Pressure 79/55 L 07/19/25 08:35 Temperature 98.1 F 07/19/25 08:35 Pulse Rate 92 07/19/25 08:35 Respiratory Rate 18 07/19/25 08:35 Blood Pressure 79/55 L 07/19/25 08:35 Transfer Transfered to: [place] Transportation: [facility] Transfer rationale: Hypotension, patient requires higher level care Accepting physician: Dr. Ken [facility] Narrative Medical decision making narrative: Patient hypotensive, she appears weak, lethargic ill-appearing. Patient has been upper respiratory symptoms for last week. Given patient's symptoms, it is recommend the patient seek a higher level care and proceed immediately to the emergency department. Patient is agreeable to go to [facility]. Patient agreed to go to the hospital by ambulance. Ambulance contacted, called over to [facility] spoke to Dr. Ken who is aware this patient accepted the patient for transfer. Patient left the [facility] by ambulance. Differential Diagnosis Differential Diagnosis: Sepsis, upper respiratory infection, influenza, dehydration, pneumonia, Critical Care Time Critical Care Time Critical Care Time: No Discharge Plan Discharge Clinical Impression: Acute hypotension, Weakness, Upper respiratory symptom Patient Disposition: Acute Care Hospital Condition: Serious Patient Language: [place]alander Prescriptions: No Action alendronate 35 mg tablet 35 mg PO WEEKLY Qty: 12 1RF progesterone micronized 200 mg capsule 200 mg PO QPM MedCaps T3 225 mcg-2.5mcg- 16.75 mg capsule 1 cap PO DAILY amoxicillin-pot clavulanate 875-125 mg tablet 1 tablet PO BID Qty: 14 0RF ondansetron 4 mg tablet,disintegrating 4 mg PO Q8H PRN (Reason: nausea and vomiting) Qty: 14 0RF cholecalciferol (vitamin D3) 25 mcg (1,000 unit) capsule 25 mcg PO DAILY calcium carbonate 600 mg calcium (1,500 mg) tablet 600 mg PO BID citalopram 40 mg tablet See Rx Instructions .ROUTE .COMPLEX Qty: 90 1RF Dose Instruction: TAKE 1 TABLET BY MOUTH DAILY. TAKE SEPARATELY FROM OMEPRAZOLE Rx Instructions: TAKE 1 TABLET BY MOUTH DAILY. TAKE SEPARATELY FROM OMEPRAZOLE memantine [Namenda] 5 mg tablet 5 mg PO BID Qty: 180 1RF omeprazole 40 mg capsule,delayed release(DR/EC) 40 mg PO DAILY Qty: 90 1RF Follow-up/Referrals: Felipa Alonzo DO [Primary Care Provider, Family Practice] Time of Disposition: 08:53
--- NOTE | 2025-07-19 08:49 | PC.NURSE ---
EMS here for patient. Report given.
== END 2025-07-19 08:50 | disposition short-term general hospital (02) ==
PROVIDERS: PCP Family Medicine
DX: I95.9 Hypotension, unspecified (principal); R09.89 Other specified symptoms and signs involving the circulatory and respiratory systems; R41.3 Other amnesia; Z79.899 Other long term (current) drug therapy; R06.09 Other forms of dyspnea; R53.83 Other fatigue; M85.88 Other specified disorders of bone density and structure, other site; M19.90 Unspecified osteoarthritis, unspecified site; N94.10 Unspecified dyspareunia; K21.9 Gastro-esophageal reflux disease without esophagitis; H92.09 Otalgia, unspecified ear; G47.00 Insomnia, unspecified; F32.A Depression, unspecified; Z87.891 Personal history of nicotine dependence
CPT/HCPCS: 99212; G0463

== ENCOUNTER 2025-07-19 09:17 | Emergency (ER) | payer MEDICARE, SELFPAY ==
[2025-07-19] VITALS (8 sets, daily range): BP systolic 91–124; BP diastolic 47–87; PULSE 66–89; RESP 16; TEMP 36.5–37.1; O2SAT 94–96
--- NOTE | ~2025-07-19 | XR_ITS ---
Examination: XR chest 1V portable Clinical History: COUGH x1 WK Comparison: None Technique: Portable AP Findings: Heart size normal. Lungs clear. No acute bony abnormality. IMPRESSION: 1. No acute cardiopulmonary findings given portable technique. Reviewed, dictated and finalized at location R. IST
--- NOTE | 2025-07-19 09:23 | ECG_ITS ---
Test Date: 2025-07-19 09:42:10 Measurements Intervals [place] Rate: 67 P: 70 [place]: 156 QRS: 43 QRSD: 106 T: 60 QT: 420 QTc: 444 Interpretive Statements SINUS RHYTHM POSSIBLE LEFT ATRIAL ENLARGEMENT INCOMPLETE RIGHT BUNDLE BRANCH BLOCK BASELINE ARTIFACT- I, III, AVR, AVL, V2-V3 BORDERLINE ECG No previous ECG available for comparison Electronically Signed On 07-19-2025 10:06:45 [employer] by Alek Giraldo D.O.
--- OUTSIDE RECORDS SUMMARY | 2025-07-19 10:06 | XMS_ITS | Data Portability ---
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 Plan of Treatment Reminders Order Date Submit Date Provider Last Modified By Organization Details Last Modified Time Details Appointments None recorded. Lab None recorded. Referral None recorded. Procedures None recorded. Surgeries None recorded. Imaging None recorded. Medication Orders doxycycline hyclate 100 mg capsule 2022 023 [id number], [address], [place], [id number], 3 17:03:53 Medrol (Cristobal) 4 mg tablets in a dose pack 2022 023 [facility]503, [address], [place], [id number], 3 17:03:53 albuterol sulfate HFA 90 mcg/actuati on aerosol inhaler 2022 023 [facility]01, [address], [place], [id number], 3 17:03:53 Symbicort 160 mcg-4.5 mcg/actuati on HFA aerosol inhaler 2022 023 [facility]82, [address] , [place], [place], [id number], 3 17:03:53 Patient TargetsNo targets recorded. Patient Instructions Encounter Date Encounter Id Patient Instructions Last Modified By Organization Details Last Modified Time 11/05/2022 [id number] FU prn. [email or web address] Not available 11/05 17:13:14 Reason for Referral None Reported. Results Created Date Observation Date Name Description Value Unit Range Abnormal Flag Note LastModifiedBy Organization Detail LastModifiedTime 04/02/20 22 04/02/2022 MAMMO , scree tere, bilat eral No observ ation record ed. [id number] [facility] [address], [place], [address], 09/18/2022 06:48:39 05/20/20 22 05/20/2022 XR, chest , 2 view No observ ation record ed. [id number] [facility] [address], [place], [address], 09/18/2022 06:48:39 Result Notes None recorded. Problems Name Problem SNOMED Code Status Onset Date Resolution Date Notes Provider Name and Address Organization Details Recorded Time Excessive cerumen in ear canal 072685783 Active Not Available [facility] 3 18:00:08 Otalgia 21680580 Active Not Available [facility] 3 18:00:08 Blood chemistry outside reference range 381602997 Active Not Available [facility] 3 18:00:08 Raynaud's disease 600651907 Active Not Available [facility] 3 18:00:08 Gastroesop hageal reflux disease 178190678 Active Not Available [facility] 3 18:00:08 Vaginal dryness on intercours e 730590307 Active Not Available [facility] 3 18:00:08 Thyroid function tests abnormal 144610223 Active Not Available [facility] 3 18:00:08 CREST syndrome 98653516 Active Not Available [facility] 3 18:00:08 Depressive disorder 67674371 Active Not Available [facility] 3 18:00:08 Memory impairment 580009415 Active Not Available [facility] 3 18:00:08 Temporoman dibular joint disorder 76335096 Active Not Available [facility] 3 18:00:08 Anxiety 93836739 Active Not Available [facility] 3 18:00:08 Cough 55646654 Active Not Available [facility] 3 18:00:08 Fatigue 03746292 Active Not Available [facility] 3 18:00:08 Dyspareuni a 73261831 Active 2016 Not Available [facility] 3 18:00:08 Excessive cerumen in ear canal 132973235 Active 2017 Not Available [facility] 3 18:00:08 Trigger finger of right hand 8431236530650 9101 Active 2019 Not Available [facility] 3 18:00:08 Osteoarthr osis of the carpometac arpal joint of the thumb 81862120 Active 2019 Not Available [facility] 3 18:00:08 Osteopenia 993266495 Active 2019 Not Available [facility] 3 18:00:08 Insomnia 245745756 Active 2019 Not Available [facility] 3 18:00:08 Dyspnea on exertion 46272424 Active 2019 Not Available [facility] 3 18:00:08 Mixed anxiety and depressive disorder 922166166 Active 2020 Not Available [facility] 3 18:00:08 Screening mammograph y Active 2020 Not Available [facility] 3 18:00:08 Bronchitis 34108058 Active 2021 Not Available [facility] 3 18:00:08 Impacted cerumen of bilateral ears 3890032644101 108 Active 2021 Not Available [facility] 3 18:00:08 Dysfunctio n of right eustachian tube 5578330137396 101 Active 2021 Not Available [facility] 3 18:00:08 Headache 02791455 Active 2021 Not Available [facility] 3 18:00:08 Compressio n fracture of thoracic vertebra 7711244330975 Active 2021 Not Available [facility] 3 18:00:08 Hyperlipid emia 12295080 Active 2021 Not Available [facility] 3 18:00:08 Osteoporos is 10747951 Active 2021 Not Available [facility] 3 18:00:08 Acute right otitis media 153982910 Active 2022 Not Available [facility] 3 18:00:08 Notes:Some problems listed i n Documents: #[id number], #[id number], #[id number] could not be added to this patient's chart. Please review these documents and add these problems to the patient's chart manually as needed. Problem Notes None recorded. Procedures Surgical History Date Name Laterality Status Provider Name and Address Organization Details Recorded Time 04/02/20 Most Recent Mammogram completed Kamlesh Leija RN [place] [facility] 11/05/2022 16:53:16 colonoscopy completed Not Available [facility] 09/18/2022 06:40:44 Imaging Results None recorded. [...] administ ered by the provider 06/20 completed [facility]: [id number] Not Available Not Available [...] Estrace 0.01% (0.1 mg/gram) vaginal cream I 1/ APPLICAT OR PER VAGINA QOD 09/27 completed [...] administ ered by the provider 06/20 completed [facility]: [id number] 01-04 Not Available Not Available [...] temperature Heart rate Respiratory rate Oxygen saturation Pain severity - 0-10 verbal numeric rating [Score] - Reported Systolic And Diastolic Provider Name and Address Organization Details Last Updated DateTime 3 162.56 cm 21 kg/m2 69633.9 7 g 101.9 [degF] 94 /min 20 /min 94 % 3 120/78 mm[Hg] Kamlesh Leija RN [place] [facility] 3 16:51:44 Date Recorded Body mass index (BMI) Body height Heart rate Body temperature Body weight Systolic And Diastolic Provider Name and Address Organization Details Last Updated DateTime 2 22.1 kg/m2 162.56 cm 76 /min 97 [degF] 50950.4 2 g 112/76 mm[Hg] Not Available [facility] 3 06:43:31 Date Recorded Body mass index (BMI) Body height Oxygen saturation Heart rate Respiratory rate Body weight Systolic And Diastolic Provider Name and Address Organization Details Last Updated DateTime 2 22.2 kg/m2 162.56 cm 98 % 76 /min 16 /min 14845.2 2 g 120/72 mm[Hg] Not Available [facility] 3 06:43:31 Date Recorded Body mass index (BMI) Body height Body temperature Body weight Systolic And Diastolic Provider Name and Address Organization Details Last Updated DateTime 05/10/2022 29.4 kg/m2 162.56 cm 98 [degF] 75254.7 5 g 128/76 mm[Hg] Not Available [facility] 3 06:43:31 Date Recorded Body mass index (BMI) Body height Body temperature Body weight Systolic And Diastolic Provider Name and Address Organization Details Last Updated DateTime 06/05/2022 20.8 kg/m2 162.56 cm 98.2 [degF] 20791.6 8 g 132/84 mm[Hg] Not Available [facility] 3 06:43:31 Social History Question Answer Notes LastModified by Organizat ion Details LastModified Time Tobacco Smoking Status Never Smoker Not Available [facility] 09/18/2022 06:40:39 Do You Have An Advance Directive? Yes [id number] Information not available 09/18/2022 Do You Wear A Helmet When Biking? Yes MIGRATION.806987 2490 Information not available 09/18/2022 Is Blood Transfusion Acceptable In An Emergency? Yes [email or web address] Information not available 11/05/2022 What Is Your Level Of Caffeine Consumption? Moderate MIGRATION.546048 8759 Information not available 09/18/2022 How Much Tobacco Do You Chew? None MIGRATION.102293 8165 Information not available 09/18/2022 In The 14 Days Before Symptom Onset, Have You Had Close Contact With A Laboratory-confir med COVID-19 While That Case Was Ill? No MIGRATION.268872 5470 Information not available 09/18/2022 In The 14 Days Before Symptom Onset, Have You Had Close Contact With A Person Who Is Under Investigation For COVID-19 While That Person Was Ill? No MIGRATION.524661 3976 Information not available 09/18/2022 What Type Of Diet Are You Following? REGULAR MIGRATION.257527 8599 Information not available 09/18/2022 Which Illicit Or Recreational Drugs Have You Used? None MIGRATION.334505 0909 Information not available 09/18/2022 What Is The Highest Grade Or Level Of School You Have Completed Or The Highest Degree You Have Received? [id number] MIGRATION.361408 4698 Information not available 09/18/2022 Have There Been Any Changes To Your Family Or Social Situation? No MIGRATION.417104 5470 Information not available 09/18/2022 What Is The Fluoride Status Of Your Home? Unknown MIGRATION.551824 3727 Information not available 09/18/2022 Are There Any Guns Present In Your Home? No MIGRATION.054454 7412 Information not available 09/18/2022 Do You Use Insect Repellent Routinely? Yes MIGRATION.928012 1545 Information not available 09/18/2022 Where Do You Live? [facility] MIGRATION.392162 9857 Information not available 09/18/2022 Do You Have A Medical Power Of Director Data? Yes MIGRATION.508939 7079 Information not available 09/18/2022 Have You Ever Been Counseled For Unhealthy Alcohol Use? No MIGRATION.918904 9191 Information not available 09/18/2022 Do You Have Any Pets? No MIGRATION.196028 6113 Information not available 09/18/2022 What Is Your Relationship Status? MIGRATION.646259 7064 Information not available 09/18/2022 Do You Use Your Seat Belt Or Car Seat Routinely? Yes MIGRATION.647772 6964 Information not available 09/18/2022 Do You Have Smoke And Carbon Monoxide Detectors In Your Home? Yes MIGRATION.176914 6522 Information not available 09/18/2022 Are You Passively Exposed To Smoke? No MIGRATION.504460 5655 Information not available 09/18/2022 Are There Any Smokers In Your House? No MIGRATION.940213 4927 Information not available 09/18/2022 Do You Participate In Social Media? Yes MIGRATION.089911 2736 Information not available 09/18/2022 Do You Use Sunscreen Routinely? Yes MIGRATION.904735 5215 Information not available 09/18/2022 Has Tobacco Cessation Counseling Been Provided? No MIGRATION.860424 9980 Information not available 09/18/2022 Have You Recently Traveled Abroad? No MIGRATION.547652 4105 Information not available 09/18/2022 Are You Currently In School? No MIGRATION.284268 1227 Information not available 09/18/2022 Do You Have Any Dietary Restrictions? No MIGRATION.605861 8810 Information not available 09/18/2022 Sex: Female Functional Status Question Answer Note LastModified by Organizat ion Details LastModified Time Do you use any illicit or recreational drugs? No MIGRATION.448069 8503 Information not available 09/18/2022 Do you or have you ever used any other forms of tobacco or nicotine? No MIGRATION.717236 9280 Information not available 09/18/2022 What is your level of alcohol consumption? Moderate MIGRATION.029825 6709 Information not available 09/18/2022 Do you or have you ever used smokeless tobacco? 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 Never used electronic cigarettes MIGRATION.796478 6968 Information not available 09/18/2022 What is your exercise level? None MIGRATION.537719 1031 Information not available 09/18/2022 Mental Status Question Answer Note LastModified by Organizat ion Details LastModified Time Do you feel stressed (tense, restless, nervous, or anxious, or unable to sleep at night)? [id number] MIGRATION.667103462 6 Information not available 09/18/2022 Family History Relationship Description Onset Age of this Age Resolved Age Notes LastModified by Organization Details LastModified Time Unspecified Relation Diabetes mellitus MIGRATION.822 [id number] Not available 09/18/2022 06:40:46 Unspecified Relation Hypertensive disorder MIGRATION.589 [id number] Not available 09/18/2022 06:40:46 Unspecified Relation Family history of malignant neoplasm MIGRATION.661 [id number] Not available 09/18/2022 06:40:46 Medical History Condition [...] (COVID-19) vaccine, UNSPECIFIED 1 completed Not Available [facility] 01/27/2023 18:00:08 SARS-COV-2 (COVID-19) vaccine, UNSPECIFIED 1 completed Not Available [facility] 01/27/2023 18:00:08 Hep A, adult 8 completed Not Available [facility] 01/27/2023 18:00:09 Hep A, adult 9 completed Not Available [facility] 01/27/2023 18:00:08 Influenza, split virus, quadrivalent, PF 8 completed Not Available [facility] 01/27/2023 18:00:09 Hep A, adult 8 completed Not Available [facility] 01/27/2023 18:00:09 Influenza, split virus, quadrivalent, PF 7 completed Not Available [facility] 01/27/2023 18:00:09 Tdap 6 completed Not Available [facility] 01/27/2023 18:00:08 Past Encounters Encounter ID Performer Location Encounter Start Date Encounter Closed Date Diagnosis/Indication Diagnosis SNOMED-CT Code Diagnosis ICD10 Code Diagnosis IMO Codes Diagnosis Note [id number] Theodore Key MD [facility] [address] [place] [address] 01/19/2021 00:00:00 01/19/2021 14:25:33 [id number] Theodore Key MD [facility] [address] [place] [address] 07/10/2021 00:00:00 07/10/2021 11:58:06 [id number] Theodore Key MD [facility] [address] [place] [address] 10/16/2021 00:00:00 10/16/2021 15:20:05 [id number] Theodore Key MD [facility] [place] [address] [place] [address] 11/15/2021 00:00:00 11/15/2021 13:01:28 [id number] Theodore eKy MD [facility] [place] [address] [place] [address] 12/12/2021 00:00:00 12/12/2021 12:40:10 [id number] Theodore Key MD [facility] [place] [address] [place] [address] 12/20/2021 00:00:00 12/20/2021 13:02:45 [id number] Theodore Key MD [facility] [place] [address] [facility] [place] [address] 05/10/2022 00:00:00 05/10/2022 15:08:23 [id number] Theodore Key MD [facility] [address] 06/05/2022 00:00:00 06/05/2022 11:01:24 [id number] Kamlesh Rodriguez NP [facility] [address] 11/05/2022 16:37:11 11/05/2022 17:18:01 Bronchitis 44556476 J40 Albuterol prn.Symbic ort bid for 10 days. Rinse mouth after use. Acute righ t otitis media 199279881 H66.91 Medrol dose cristobal and doxy. Health Concerns Section Related Observation LastModified by Organization Detai ls LastModified Time None Recorded Concern Status LastModified by Organization Details LastModified Time None Recorded Advance Directives Directive Y: Payers Insurance Date Sequence Insurance Name Policy Number Policy Medina Covered Member ID Medina Member ID Guarantor Name 11/05/2022 1 [facility] [id number] Li Anthony [id number] Li Anthony Notes Date Note Type Note [...] or smell. Mouth is dry. Leaving for [place] , 2 days from today. Kamlesh Rodriguez NP [address] [facility] [address], [place], [address], [facility] 11/05/2022 17:13:37 OBGyn Episode No OBEpisode recorded.
[2025-07-19 10:12] LABS: Add Urine Microscopic? YES; Appearance Urine Cloudy (Clear); Glucose Urine UA Negative (Negative); Leukocyte Esterase Ur Trace LEU/UL (Negative); Need Manual Microscopic Reviewed; Nitrate Urine Negative (Negative); Specific Grav Ur 1.028 (1.001-1.035)
[2025-07-19 10:13] LABS: Hematocrit 36.6 % (37.0-47.0); Hemoglobin 12.2 g/dL (12.0-15.0); Immature Granulocyte Percent A 0.4 % (0-0.5); Immature Platelet Fraction Pct 4.3 % (0.9-11.2); Lymphocytes Absolute Auto 0.90 K/mm3 (0.9-3.2); Mean Corpuscular HGB Conc 33.3 g/dl (32-36); Mean Corpuscular Hemoglobin 29.9 pg (26-34); Mean Corpuscular Volume 89.7 fl (80-100); Nucleated Red Blood Cells Absolute Auto 0.000 K/mm3 (0.0-0.012); Nucleated Red Blood Cells Perc 0.0 % (0.0-0.2); Platelet Count Result 140 k/mm3 (150-375); Red Blood Count 4.08 M/mm3 (4.2-5.4); White Blood Count 7.9 K/mm3 (4.5-10.0)
--- NOTE | 2025-07-19 10:21 | ED.GENADULT ---
HPI - General Adult General Chief complaint: Weakness Stated complaint: low BP, weakness Time Seen by Provider: 07/19/25 09:17 History of Present Illness HPI narrative: 65-year-old female presenting to the emergency department for evaluation for increased generalized weakness cough congestion this been ongoing for the last week. Patient states she has had some nausea without vomiting and a nonproductive cough. Patient denies any associated fevers. Patient denies any known sick contacts. The patient initially presented to urgent care for follow-up and was hypotensive and patient was referred to the emergency department. Related Data Home Medications ?Medication ?Instructions ?Recorded ?Confirmed ?Last Taken ?Type progesterone micronized 200 mg 200 mg PO QPM 07/27/24 07/05/25 10/05/24 History capsule vit A 225 mcg-D3 2.5 mcg-E 16.75 1 cap PO DAILY 07/27/24 07/05/25 10/02/24 History [id number]-selenom-herb capsule (MedCaps T3) calcium carbonate 600 mg PO BID 12/08/24 07/05/25 Unknown History cholecalciferol (vitamin D3) 25 25 mcg PO DAILY 12/08/24 07/05/25 Unknown History mcg (1,000 unit) capsule Allergies Allergy/AdvReac Type Severity Reaction Status Date / Time kiwi Allergy Severe THROAT Verified 07/19/25 09:40 SWELLING Review of Systems Review of Systems: All systems reviewed & are unremarkable except as noted in HPI and below PMFSH Past Medical History Medical History Memory loss Change in bowel habits Incontinence of feces 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 Normal colonoscopy Dyspnea on exertion Memory impairment Fatigue Osteopenia Osteoarthritis CREST syndrome Vaginal dryness Dyspareunia GERD (gastroesophageal reflux disease) Temporomandibular joint disorders Raynauds disease Otalgia Excessive cerumen in ear canal Insomnia Depression Acute adjustment disorder with anxiety Surgical History Surgical History H/O breast augmentation H/O prior ablation treatment Family History Family History Mother Diabetes mellitus Hypertension Malignant carcinoid tumor of lung Father Dementia Heart disease Kidney disease Alcoholism Lung cancer Depression Anxiety Grandparent Alcoholism Diabetes mellitus Social History Social History Smoking status: Never smoker Second hand tobacco smoke exposure: Yes Alcohol intake: former Alcohol use details: quit 2021 Substance use: never Substance use type: does not use Lack of Transportation: No Lack of Food: Never True Current Housing: I Have Housing Concerned About Future Housing: No Difficulty Paying Gas/Electric Bills: No Difficulty Paying for Meds: No Currently Unemployed: No Education: High School Diploma/GED Living arrangements: with family Spiritual care concerns: No Exam Narrative: APPEARANCE: Tired appearing HEAD: normocephalic, atraumatic. EYES: PERRLA/EOMI, conjunctivae clear. NOSE: Normal no drainage EARS:TMS clear with good light reflex. THROAT: Pharynx clear, no exudate. NECK: Supple. No adenopathy, no masses. RESPIRATORY: Airway patent, respirations nonlabored. Clear to auscultation bilaterally, no rales, rhonchi, wheezing. CARDIOVASCULAR: Regular rate and rhythm without murmurs rubs or gallops. ABDOMINAL: Soft, nontender, nondistended, normal bowel sounds MUSCULOSKELETAL: Moves all extremities. Strength/ROM intact, No edema, No calf tenderness. NEURO: Alert. Cranial nerves II through XII intact. Good gait. Good coordination SKIN: Warm, dry. Normal Color Course Vital Signs Vital signs: Vital Signs Temperature 97.7 F 07/19/25 09:19 Pulse Rate 66 07/19/25 09:19 Respiratory Rate 16 07/19/25 09:19 Blood Pressure 124/67 07/19/25 09:19 Pulse Oximetry 94 07/19/25 09:19 Oxygen Delivery Room Air 07/19/25 09:19 Temperature 98.8 F 07/19/25 14:52 Pulse Rate 70 07/19/25 14:52 Respiratory Rate 16 07/19/25 14:52 Blood Pressure 91/47 L 07/19/25 14:52 Pulse Oximetry 96 07/19/25 14:52 Oxygen Delivery Room Air 07/19/25 09:19 MDM MDM Narrative Medical decision making narrative: 65-year-old female presents to the emergency department for evaluation for nausea and fatigue. Patient is currently afebrile with no leukocytosis and a stable hemoglobin of 12.2. No acute abnormalities on her CMP lactic acid was negative. Patient's UA was negative for infection. Patient did test positive for influenza A. Patient was treated with 2 L of lactated Ringer's and vital signs improved. Patient was able to ambulate with no worsening symptoms. Patient family updated the results of the workup. Patient was comfortable plan for discharge and close follow-up Differential Diagnosis Differential Diagnosis: Orthostatic hypotension, dehydration, COVID, flu, influenza, pneumonia, UTI Lab Data MDM Lab Attestation statement: I personally reviewed the patient's lab results. 07/19/25 10:02 07/19/25 10:02 Labs: Lab Results 07/19/25 07/19/25 07/19/25 Range/Units 09:46 09:47 10:02 WBC 7.9 (4.5-10.0) K/mm3 RBC 4.08 L (4.2-5.4) M/mm3 Hgb 12.2 (12.0-15.0) g/dL Hct 36.6 L (37.0-47.0) % MCV 89.7 (80-100) fl MCH 29.9 (26-34) pg MCHC 33.3 (32-36) g/dl RDW 12.9 (11.5-14.5) % Plt Count 140 L (150-375) k/mm3 MPV 10.3 (7.4-10.4) fl Immature Gran % (Auto) 0.4 (0-0.5) % Neut % (Auto) 81.3 H (45.5-73.1) % Lymph % (Auto) 11.5 L (18.3-44.2) % [place] % (Auto) 6.6 (2.6-8.5) % Eos % (Auto) 0.1 (0-4.4) % Baso % (Auto) 0.1 L (0.2-1.2) % Lymph # (Auto) 0.90 (0.9-3.2) K/mm3 [place] # (Auto) 0.5 (0.1-0.6) K/mm3 Eos # (Auto) 0.0 (0-0.3) K/mm3 Baso # (Auto) 0.0 (0.0-0.1) K/mm3 Abs Immat Gran (auto) 0.03 (0.00-0.031) K/mm3 Absolute Neuts (auto) 6.4 (1.3-6.7) K/mm3 Absolute Nucleated RBC 0.000 (0.0-0.012) K/mm3 Nucleated RBC % 0.0 (0.0-0.2) % % Immature Plt Fraction 4.3 (0.9-11.2) % PT 13.1 (11.1-14.7) Seconds INR 1.0 APTT 29.4 (22.3-36.8) Seconds Sodium 134 L (137-145) mmol/L Potassium 4.2 (3.4-5.0) mmol/L Chloride 105 (98-107) mmol/L Carbon Dioxide 27 (22-30) mmol/L Anion Gap 2 L (4-12) mmol/L BUN 11 (7-17) mg/dL Creatinine 0.72 (0.7-1.0) mg/dL Estim Creat Clear Calc 57 ml/min Estimated GFR > 60 (59 - ) Glucose 103 (65-110) mg/dL Lactic Acid (0.7-2.0) mmol/L Calcium 8.1 L (8.4-10.2) mg/dL Total Bilirubin 0.4 (0.2-1.3) mg/dL AST 27 (14-36) U/L ALT 19 (6-35) U/L Alkaline Phosphatase 51 (38-126) U/L Total Protein 5.9 L (6.3-8.2) g/dL Albumin 3.4 L (3.5-5.1) g/dL Lipase 57 (23-300) U/L Urine Color Dark yellow (Yellow) Urine Appearance Cloudy H (Clear) Urine pH 6.0 (5.0-9.0) Ur Specific [place] 1.028 (1.001-1.035) Urine Protein 2+ H (Negative) mg/dL Urine Glucose (UA) Negative (Negative) mg/dL Urine Ketones Trace H (Negative) mg/dL Ur Blood (Man) Negative (Negative) Urine Nitrate Negative (Negative) Urine Bilirubin Negative (Negative) Urine Urobilinogen 1.0 (<2.0) mg/dL Add Ur Microanalysis Reviewed Leukocyte Esterase Rfl Trace H (Negative) ISI/UL Urine RBC 3-5 H (0-2) /hpf Urine WBC 11-20 H (0-3) /hpf Ur Squamous Epith Cells Many H (Few) /hpf Urine Bacteria 1+ H /hpf Urine Casts 6-10 Influenza A (RT-PCR) Positive A (Negative) Influenza B (RT-PCR) Negative (Negative) RSV (RT-PCR) Negative (Negative) SARS-CoV-2 RNA (RT-PCR) Negative (Negative) 07/19/25 Range/Units 10:03 WBC (4.5-10.0) K/mm3 RBC (4.2-5.4) M/mm3 Hgb (12.0-15.0) g/dL Hct (37.0-47.0) % MCV (80-100) fl MCH (26-34) pg MCHC (32-36) g/dl RDW (11.5-14.5) % Plt Count (150-375) k/mm3 MPV (7.4-10.4) fl Immature Gran % (Auto) (0-0.5) % Neut % (Auto) (45.5-73.1) % Lymph % (Auto) (18.3-44.2) % [place] % (Auto) (2.6-8.5) % Eos % (Auto) (0-4.4) % Baso % (Auto) (0.2-1.2) % Lymph # (Auto) (0.9-3.2) K/mm3 [place] # (Auto) (0.1-0.6) K/mm3 Eos # (Auto) (0-0.3) K/mm3 Baso # (Auto) (0.0-0.1) K/mm3 Abs Immat Gran (auto) (0.00-0.031) K/mm3 Absolute Neuts (auto) (1.3-6.7) K/mm3 Absolute Nucleated RBC (0.0-0.012) K/mm3 Nucleated RBC % (0.0-0.2) % % Immature Plt Fraction (0.9-11.2) % PT (11.1-14.7) Seconds INR APTT (22.3-36.8) Seconds Sodium (137-145) mmol/L Potassium (3.4-5.0) mmol/L Chloride (98-107) mmol/L Carbon Dioxide (22-30) mmol/L Anion Gap (4-12) mmol/L BUN (7-17) mg/dL Creatinine (0.7-1.0) mg/dL Estim Creat Clear Calc ml/min Estimated GFR (59 - ) Glucose (65-110) mg/dL Lactic Acid 0.9 (0.7-2.0) mmol/L Calcium (8.4-10.2) mg/dL Total Bilirubin (0.2-1.3) mg/dL AST (14-36) U/L ALT (6-35) U/L Alkaline Phosphatase (38-126) U/L Total Protein (6.3-8.2) g/dL Albumin (3.5-5.1) g/dL Lipase (23-300) U/L Urine Color (Yellow) Urine Appearance (Clear) Urine pH (5.0-9.0) Ur Specific [place] (1.001-1.035) Urine Protein (Negative) mg/dL Urine Glucose (UA) (Negative) mg/dL Urine Ketones (Negative) mg/dL Ur Blood (Man) (Negative) Urine Nitrate (Negative) Urine Bilirubin (Negative) Urine Urobilinogen (<2.0) mg/dL Add Ur Microanalysis Leukocyte Esterase Rfl (Negative) ISI/UL Urine RBC (0-2) /hpf Urine WBC (0-3) /hpf Ur Squamous Epith Cells (Few) /hpf Urine Bacteria /hpf Urine Casts Influenza A (RT-PCR) (Negative) Influenza B (RT-PCR) (Negative) RSV (RT-PCR) (Negative) SARS-CoV-2 RNA (RT-PCR) (Negative) Imaging Data Radiologist's impression: ITS Impressions Chest X-Ray 07/19/25 10:47 IMPRESSION: 1. No acute cardiopulmonary findings given portable technique. Discharge Plan Discharge Clinical Impression: Influenza A Patient Disposition: Home Condition: Stable Instructions: Antibiotic Form, Influenza (ED) Additional Instructions: Tylenol and ibuprofen for fever and for body aches. Drink plenty of fluids. Zofran as needed for nausea control. Have close follow-up with your primary care physician. If you have any worsening symptoms then please call or return to the emergency department. Patient Language: Lao Prescriptions: New ondansetron 4 mg tablet,disintegrating 4 mg PO Q8H PRN (Reason: nausea and vomiting) Qty: 14 0RF No Action alendronate 35 mg tablet 35 mg PO WEEKLY Qty: 12 1RF progesterone micronized 200 mg capsule 200 mg PO QPM MedCaps T3 225 mcg-2.5mcg- 16.75 mg capsule 1 cap PO DAILY amoxicillin-pot clavulanate 875-125 mg tablet 1 tablet PO BID Qty: 14 0RF cholecalciferol (vitamin D3) 25 mcg (1,000 unit) capsule 25 mcg PO DAILY calcium carbonate 600 mg calcium (1,500 mg) tablet 600 mg PO BID citalopram 40 mg tablet See Rx Instructions .ROUTE .COMPLEX Qty: 90 1RF Dose Instruction: TAKE 1 TABLET BY MOUTH DAILY. TAKE SEPARATELY FROM OMEPRAZOLE Rx Instructions: TAKE 1 TABLET BY MOUTH DAILY. TAKE SEPARATELY FROM OMEPRAZOLE memantine [Namenda] 5 mg tablet 5 mg PO BID Qty: 180 1RF omeprazole 40 mg capsule,delayed release(DR/EC) 40 mg PO DAILY Qty: 90 1RF Follow-up/Referrals: Felipa Alonzo DO [Primary Care Provider, Family Practice]
[2025-07-19 10:24] LABS: INR 1.0; Partial Thromboplastin Time 29.4 Seconds (22.3-36.8); Prothrombin Time 13.1 Seconds (11.1-14.7)
[2025-07-19 10:30] LABS: Influenza A QL RT-PCR Positive (Negative); Influenza B QL RT-PCR Negative (Negative); RSV RNA, RT-PCR Negative (Negative); SARS-CoV-2 RNA PCR Negative (Negative)
[2025-07-19 10:32] LABS: Alanine Aminotransferase 19 U/L (6-35); Albumin Level 3.4 g/dL (3.5-5.1); Alkaline Phosphatase 51 U/L (38-126); Anion Gap 2 mmol/L (4-12); Aspartate Amino Transferase 27 U/L (14-36); Bilirubin,Total 0.4 mg/dL (0.2-1.3); Blood Urea Nitrogen 11 mg/dL (7-17); Calcium 8.1 mg/dL (8.4-10.2); Carbon Dioxide 27 mmol/L (22-30); Chloride 105 mmol/L (98-107); Estimated CRCL calculation 57 ml/min; Estimated Glomerular Filt Rate > 60; Glucose 103 mg/dL (65-110); Lipase 57 U/L (23-300); Potassium 4.2 mmol/L (3.4-5.0); Sodium 134 mmol/L (137-145); Total Protein 5.9 g/dL (6.3-8.2)
[2025-07-19] MEDS: LACTATED RINGERS 1,000 ML 999 ML IV CONT (11:19)
[2025-07-19] MEDS: ACETAMINOPHEN 500 MG TABLET 1000 MG PO (11:58)
== END 2025-07-19 14:54 | disposition home or self-care (01) ==
PROVIDERS: Emergency Provider Emergency Medicine; PCP Family Medicine
DX: J10.1 Influenza due to other identified influenza virus with other respiratory manifestations (principal); Z20.822 Contact with and (suspected) exposure to COVID-19; I73.00 Raynaud's syndrome without gangrene; K21.9 Gastro-esophageal reflux disease without esophagitis; M19.90 Unspecified osteoarthritis, unspecified site; M85.80 Other specified disorders of bone density and structure, unspecified site; M34.1 CR(E)ST syndrome; F32.A Depression, unspecified; Z77.22 Contact with and (suspected) exposure to environmental tobacco smoke (acute) (chronic); Z79.899 Other long term (current) drug therapy
CPT/HCPCS: 36415; 71045; 80053; 81001; 83605; 83690; 85025; 85055; 85610; 85730; 87637; 93005; 96360; 96361; 99283; A9270; J7120